=== PATIENT | male | born 1990 | race African-American/Black ===

== ENCOUNTER 2016-05-13 11:17 | Emergency (ER) | payer OTHER ==
[~2016-05-13] VITALS: Ht 175.3 cm; Wt 102.1 kg
[~2016-05-13 11:17] MED LIST: ACETAMINOP-CODEI5 ML PO; ACETAMINOPHEN-1 EAC1 ORAL; ALBUTEROL SULF8.5 GM INH; AMOXICILLIN500 MG ORAL; AZITHROMYCIN250 MG ORAL; CYCLOBENZAPRINE10 MG ORAL; IBUPROFEN600 M1 PO; IBUPROFEN600 MG ORAL; MUCINEX D ER T1 EACH PO; NKM; NORCO 5-325 TA1 EAC1 ORAL; NORCO 5-325 TA1 EACH ORAL; PERCOCET 5-3251 EACH ORAL; PREDNISONE10 MG ORAL; PROMETHAZINE-C118 M1 ORAL; TAMIFLU75 MG ORAL; TYLENOL325 MG ORAL; ZOFRAN4 MG ORAL
[2016-05-13 11:50] VITALS: BP 141/95
[2016-05-13] MEDS ORDERED: Tubing IV Cassette IV ONE (12:40)
[2016-05-13] MEDS: LR 1000ml 1,000 ML IV SCH ×2 (13:00→13:02)
[2016-05-13 14:23] VITALS: BP 135/84
--- NOTE | 2016-05-14 15:15 | Emergency Room Report ---
History of Present Illness General Chief Complaint: General Complaint Source: Patient Present Illness HPI 25 YOM c/o 2 days severe dehydration after taking water pills to help him lose weight - urinating "a lot," feeling weak when changing position/standing up. States drinking a lot of fluid but "its not enough." Denies chest pain, SOB, palpitations, abd pain, urinary complaints. Denies other medical problems. Allergies: Coded Allergies: No Known Allergies (Unverified , 09/30/13) Patient History Past Medical History: none Past Surgical History: none Pertinent Family History: none Social History: Denies: alcohol use, drug use, smoking Immunizations: UTD Reviewed Nursing Documentation: PMH: Agreed, PSxH: Agreed Nursing Documentation-PMH Hx Hypertension: Yes Hx Asthma: Yes Hx COPD: No - bronchitis Hx Diabetes: Yes - BOARDLINE Review of Systems All Other Systems: negative except mentioned in HPI Physical Exam Vital Signs Date Time Temp Pulse Resp B/P Pulse Ox O2 Delivery O2 Flow Rate FiO2 05/13/16 11:36 98.2 52 20 141/95 100 Room Air Sp02 EP Interpretation: reviewed, normal General Appearance: normal inspection, well appearing, no apparent distress, alert, GCS 15, non-toxic Head: normocephalic, atraumatic Eyes: bilateral eye EOMI, bilateral eye PERRL ENT: normal ENT inspection, hearing grossly normal, no angioedema, normal voice , dry mucus membranes Neck: normal inspection, full range of motion, supple, no bony tend Respiratory: normal inspection, lungs clear, normal breath sounds, no respiratory distress, no retraction, no wheezing Cardiovascular #1: regular rate, rhythm, no edema Gastrointestinal: normal inspection, normal bowel sounds, non tender, soft, no guarding, no hernia Genitourinary: no CVA tenderness Musculoskeletal: normal inspection, back normal, normal range of motion, Cody' s Sign negative Neurologic: normal inspection, alert, oriented x3, responsive, conventions reservationist III-XII nml as tested, motor strength/tone normal, speech normal Psychiatric: normal inspection Skin: normal inspection, palpation normal Lymphatic: normal inspection Medical Decision Making Diagnostic Impression: Primary Impression: Dehydration ER Course 25 YO M with HPI and PE c/w dehydration. VSS. Afebrile. ECG NSR. No ischemia Patient given IVF hydration Feels much better DC home Last Vital Signs Date Time Temp Pulse Resp B/P Pulse Ox O2 Delivery O2 Flow Rate FiO2 05/13/16 14:23 98.2 56 20 135/84 100 Room Air Status: improved Disposition: HOME, SELF-CARE Condition: Improved Patient Instructions: Dehydration, Adult, [id number] YUSUF BELCHER M.D. May 14, 2016 15:15
--- NOTE | 2016-05-17 18:19 | Cardiology Report ---
APPROVED REPORT EKG Measurement Heart [id number] Sinus bradycardia with sinus arrhythmia Otherwise normal ECG
== END 2016-05-13 14:24 | disposition home or self-care (01) ==
LOC: EMR 12:18
DX: E86.0 Dehydration (principal); J45.909 Unspecified asthma, uncomplicated
CPT/HCPCS: 82962; 93005; 96360; 99284; J7120

== ENCOUNTER 2016-05-25 01:33 | Emergency (ER) | payer OTHER ==
[~2016-05-25] VITALS: Ht 175.3 cm; Wt 99.8 kg
[2016-05-25] MEDS ORDERED: Ketorolac 30mg Inj IM ONE (02:00)
[2016-05-25] MEDS ORDERED: Cyclobenzaprine 10mg Tab ORAL ONE (02:00)
[2016-05-25 02:20] VITALS: BP 124/77
[2016-05-25] MEDS ORDERED: CYCLOBENZAPRINE10 MG ORAL (02:27)
[2016-05-25] MEDS ORDERED: IBUPROFEN600 MG ORAL (02:27)
--- NOTE | 2016-05-25 05:31 | Emergency Room Report ---
History of Present Illness General Chief Complaint: Pain Source: Patient Present Illness HPI 25-year-old male presents ED complaining of right shoulder and neck pain x2 days. States 2 days ago he had a mechanical trip and fall hitting a wall. States that he's been having right shoulder and right-sided neck pain since. Pain is sharp. 10 out of 10. Nonradiating. Worse with movement. Denies any other injuries. No other aggravating relieving factors. Denies any other associated symptoms Allergies: Coded Allergies: No Known Allergies (Unverified , 09/30/13) Patient History Past Medical History: DM, asthma Past Surgical History: none Pertinent Family History: none Social History: Denies: alcohol use, drug use, smoking Immunizations: UTD Reviewed Nursing Documentation: PMH: Agreed, PSxH: Agreed Nursing Documentation-PMH Hx Hypertension: Yes Hx Asthma: Yes Hx COPD: No - bronchitis Hx Diabetes: Yes - BOARDLINE Review of Systems All Other Systems: negative except mentioned in HPI Physical Exam Vital Signs Date Time Temp Pulse Resp B/P Pulse Ox O2 Delivery O2 Flow Rate FiO2 05/25/16 01:43 97.3 54 18 124/77 96 Room Air Sp02 EP Interpretation: reviewed, normal General Appearance: no apparent distress, alert, GCS 15, non-toxic Head: normocephalic Eyes: bilateral eye PERRL, bilateral eye normal inspection ENT: hearing grossly normal, normal pharynx, no angioedema, normal voice Neck: full range of motion, supple, no bony tend, supple/symm/no masses, tender lateral Respiratory: normal inspection Cardiovascular #1: normal inspection Gastrointestinal: normal inspection Rectal: deferred Genitourinary: no CVA tenderness Musculoskeletal: normal range of motion, tender - R shoulder Neurologic: alert, oriented x3, responsive, motor strength/tone normal, sensory intact, speech normal Psychiatric: normal inspection Skin: normal inspection Lymphatic: normal inspection Medical Decision Making Diagnostic Impression: Primary Impression: Neck strain Qualified Codes: S16.1XXA - Strain of muscle, fascia and tendon at neck level , initial encounter ER Course Hospital Course 25 yo M presents ED with right shoulder and neck pain status post fall Differential diagnoses include: Neck strain, Shoulder contusion, shoulder dislocation Clinical course Patient placed on stretcher. After initial history, physical exam reveals a young male in no acute distress. There is no midline cervical tenderness. There is tenderness to the right side of the neck radiating towards the right shoulder. Full range of motion to right shoulder. Unlikely any evidence of fracture or dislocation. Pain is muscular. I ordered toradol and flexeril for pain. Upon reassessment patient states pain has improved. Diagnosis - neck strain Stable and discharged to home with prescription for Motrin, Flexeril. Followup with PMD. Return to ED if symptoms recur or worsen Last Vital Signs Date Time Temp Pulse Resp B/P Pulse Ox O2 Delivery O2 Flow Rate FiO2 05/25/16 02:20 97.3 18 124/77 96 Room Air 05/25/16 01:43 54 Status: improved Disposition: HOME, SELF-CARE Condition: Stable Scripts Cyclobenzaprine Hcl* (FLEXERIL*) 10 Mg Tablet 10 MG ORAL TID Y for Muscle Spasm, #20 TAB Prov: HEIDI SOLIS M.D. 05/25/16 Ibuprofen* (MOTRIN*) 600 Mg Tablet 600 MG ORAL Q8H Y for For Pain, #30 TAB 0 Refills Prov: HEIDI SOLIS M.D. 05/25/16 Patient Instructions: Cervical Strain and Sprain With [facility] HEIDI SOLIS M.D. May 25, 2016 05:31
== END 2016-05-25 02:25 | disposition home or self-care (01) ==
LOC: EMR 02:02
DX: S16.1XXA Strain of muscle, fascia and tendon at neck level, initial encounter (principal); I10 Essential (primary) hypertension; J45.909 Unspecified asthma, uncomplicated; E11.9 Type 2 diabetes mellitus without complications; W18.30XA Fall on same level, unspecified, initial encounter; Y92.9 Unspecified place or not applicable; Y99.8 Other external cause status
CPT/HCPCS: 96372; 99284; J1885

== ENCOUNTER 2016-09-09 01:09 | Emergency (ER) | payer OTHER ==
[~2016-09-09] VITALS: Ht 175.3 cm; Wt 95.3 kg
[2016-09-09] MEDS ORDERED: Azithromycin 250mg tab ORAL ONE (02:00)
[2016-09-09] MEDS ORDERED: Lidocaine 1% MPF 10mg/ml 5ml ONE (02:02)
[2016-09-09 02:10] LABS: APPEARANCE,URINE CLEAR; KETONES,URINE NEGATIVE (NEGATIVE); LEUKOCYTE ESTERASE ,URINE 2+ (NEGATIVE); NITRITE,URINE NEGATIVE (NEGATIVE); PH,URINE 6 (4.5-8.0); PROTEIN,URINE NEGATIVE (NEGATIVE); UROBILINOGEN,URINE NORMAL MG/DL (0.0-1.0)
[2016-09-09 02:32] LABS: RBC,URINE 0 /HPF (0 - 0)
[2016-09-09 02:54] VITALS: BP 120/83
--- NOTE | 2016-09-09 14:32 | Emergency Room Report ---
History of Present Illness General Chief Complaint: Abdominal Pain Source: Patient Present Illness HPI 25-year-old M presents ED for evaluation. Patient states last 2 days he's had painful urination. Denies any discharge. States he's had a recent unprotected sex. Denies any fevers or chills and denies flank pain. Pain is a 9/10, burning, worse with urination. Denies any testicular pain. No other aggravating or relieving factors. Denies any other associated symptoms Allergies: Coded Allergies: No Known Allergies (Unverified , 09/30/13) Patient History Past Medical History: HTN, asthma Past Surgical History: none Pertinent Family History: none Social History: Denies: alcohol use, drug use, smoking Immunizations: UTD Reviewed Nursing Documentation: PMH: Agreed, PSxH: Agreed Nursing Documentation-PMH Hx Hypertension: Yes Hx Asthma: Yes Hx COPD: No - bronchitis Hx Diabetes: Yes - BOARDLINE Review of Systems All Other Systems: negative except mentioned in HPI Physical Exam Vital Signs Date Time Temp Pulse Resp B/P Pulse Ox O2 Delivery O2 Flow Rate FiO2 09/09/16 01:32 98.4 65 18 115/83 96 Room Air Sp02 EP Interpretation: reviewed, normal General Appearance: no apparent distress, alert, GCS 15, non-toxic Head: normocephalic Eyes: bilateral eye PERRL, bilateral eye normal inspection ENT: normal ENT inspection Neck: normal inspection Respiratory: normal inspection Cardiovascular #1: normal inspection Gastrointestinal: normal bowel sounds, non tender, soft, non-distended, no guarding, no rebound Rectal: deferred Genitourinary: no CVA tenderness Musculoskeletal: normal inspection Neurologic: alert, oriented x3, responsive, motor strength/tone normal, sensory intact, speech normal Psychiatric: normal inspection Skin: normal inspection Lymphatic: normal inspection Medical Decision Making Diagnostic Impression: Primary Impression: STD (male) ER Course Hospital Course 25-year-old male presents to ED complaining of dysuria. Recent unprotected sex Differential diagnoses include: UTI, cystitis, pyelonephritis Clinical course Patient placed on stretcher. After initial history and physical I ordered UA UA shows some white blood cells but no evidence of bacteria suggestive of UTI Findings likely related to STD. Given Rocephin/azithromycin in ED. Recommend testing at STD clinic Diagnosis - STD Stable and discharged home. Instructed to followup with PMD. Return to ED if symptoms recur or worsen Labs Test 09/09/16 01:53 Urine Color Pale yellow Urine Appearance Clear Urine pH 6 (4.5-8.0) Urine Specific [place] 1.015 (1.005-1.035) Urine Protein Negative (NEGATIVE) Urine Glucose (UA) Negative (NEGATIVE) Urine Ketones Negative (NEGATIVE) Urine Occult Blood Negative (NEGATIVE) Urine Nitrite Negative (NEGATIVE) Urine Bilirubin Negative (NEGATIVE) Urine Urobilinogen Normal MG/DL (0.0-1.0) Urine Leukocyte Esterase 2+ (NEGATIVE) Urine RBC 0 /HPF (0 - 0) Urine WBC 10-15 /HPF (0 - 0) Urine Squamous Epithelial Cells None /LPF (NONE/OCC) Urine Bacteria None /HPF (NONE) Last Vital Signs Date Time Temp Pulse Resp B/P Pulse Ox O2 Delivery O2 Flow Rate FiO2 09/09/16 02:54 98.4 18 120/83 96 Room Air 09/09/16 01:32 65 Status: improved Disposition: HOME, SELF-CARE Condition: Stable Patient Instructions: Dysuria HEIDI SOLIS M.D. Sep 09, 2016 14:32
== END 2016-09-09 02:57 | disposition home or self-care (01) ==
LOC: EMR 02:08
DX: A64 Unspecified sexually transmitted disease (principal); I10 Essential (primary) hypertension; J45.909 Unspecified asthma, uncomplicated
CPT/HCPCS: 81003; 87086; 96372; 99283; J0696; Q0144

== ENCOUNTER 2016-09-11 19:29 | Emergency (ER) | payer OTHER ==
[~2016-09-11] VITALS: Ht 175.3 cm; Wt 95.3 kg
[2016-09-11 19:55] VITALS: BP 131/84
[2016-09-11 20:12] LABS: APPEARANCE,URINE CLEAR; KETONES,URINE NEGATIVE (NEGATIVE); LEUKOCYTE ESTERASE ,URINE 2+ (NEGATIVE); NITRITE,URINE NEGATIVE (NEGATIVE); PH,URINE 6.5 (4.5-8.0); PROTEIN,URINE NEGATIVE (NEGATIVE); UROBILINOGEN,URINE NORMAL MG/DL (0.0-1.0)
[2016-09-11 20:29] LABS: BACTERIA,URINE OCCASIONAL /HPF; WBC,URINE 20-30 /HPF (0 - 0)
[2016-09-11] MEDS ORDERED: ARTIFICIAL TEAR15 ML BOTH EYES (20:40)
[2016-09-11] MEDS ORDERED: CEPHALEXIN500 MG ORAL (20:40)
[2016-09-11] MEDS ORDERED: IBUPROFEN600 MG ORAL (20:40)
[2016-09-11 20:50] VITALS: BP 128/82
--- NOTE | 2016-09-11 21:52 | Emergency Room Report ---
History of Present Illness General Chief Complaint: Eye Problems Source: Patient Present Illness HPI The patient is a 25 old male presenting for bilateral eye redness, eye pain, and dysuria. He states at that redness and pain began 2 days prior and has been worsening. He denies any known sick contacts. Pain is a 9/10 burning sensation to both eyes. Worse with blinking. He denies any discharge from the eyes. He does admit to mild blurred vision. He denies any dizziness. Dysuria described as 5/10 burning with urination. He was seen in this emergency department recently and given Rocephin and azithromycin. He states he has not been sexually active since then. He denies fever, chills, nausea, vomiting Allergies: Coded Allergies: No Known Allergies (Unverified , 09/30/13) Patient History Past Medical History: see triage record Pertinent Family History: none Reviewed Nursing Documentation: PMH: Agreed, PSxH: Agreed Nursing Documentation-PMH Past Medical History: No History, Except For Hx Hypertension: Yes Hx Asthma: Yes Hx COPD: No - bronchitis Hx Diabetes: Yes - BOARDLINE Review of Systems All Other Systems: negative except mentioned in HPI Physical Exam Vital Signs Date Time Temp Pulse Resp B/P Pulse Ox O2 Delivery O2 Flow Rate FiO2 09/11/16 19:43 98.2 60 16 131/84 100 Room Air Sp02 EP Interpretation: reviewed, normal General Appearance: no apparent distress, alert, GCS 15, non-toxic Head: normocephalic, atraumatic Eyes: bilateral eye EOMI, bilateral eye PERRL, bilateral eye Scleral Injection ENT: hearing grossly normal, normal pharynx, no angioedema, normal voice Neck: full range of motion, supple/symm/no masses Respiratory: chest non-tender, lungs clear, normal breath sounds, speaking full sentences Gastrointestinal: normal bowel sounds, non tender, soft, non-distended, no guarding, no rebound Genitourinary: normal inspection, no CVA tenderness, penis normal Neurologic: alert, oriented x3, responsive, motor strength/tone normal, sensory intact, speech normal Psychiatric: judgement/insight normal, memory normal, mood/affect normal, no suicidal/homicidal ideation Skin: normal color, no rash, warm/dry, well hydrated Medical Decision Making PA Attestation Dr. Morales is my supervising physician. Patient management was discussed with my supervising physician Diagnostic Impression: Primary Impression: Urinary tract infection Qualified Codes: N39.0 - Urinary tract infection, site not specified Additional Impression: Viral conjunctivitis ER Course The patient is a 25-year-old male presenting for eye redness, eye pain, and dysuria Differential diagnoses considered but not limited to allergic conjunctivitis, bacterial conjunctivitis, viral conjunctivitis, blepharitiis, hordeolum Differential diagnosis considered but not limited to: UTI, urethritis, STD, among others Physical exam: Vitals within normal limits. Eyes: Bilateral conjunctival injection with increased tearing. Abdomen is soft and nontender Otherwise exam unremarkable Urinalysis shows white blood cells with bacteria The patient will be discharged home with a prescription for artificial tears and antibiotics for UTI. He was informed that the eye infection is very contagious. ER precautions given Laboratory Tests Test 09/11/16 19:50 Urine Color Pale yellow Urine Appearance Clear Urine pH 6.5 (4.5-8.0) Urine Specific [place] 1.010 (1.005-1.035) Urine Protein Negative (NEGATIVE) Urine Glucose (UA) Negative (NEGATIVE) Urine Ketones Negative (NEGATIVE) Urine Occult Blood Negative (NEGATIVE) Urine Nitrite Negative (NEGATIVE) Urine Bilirubin Negative (NEGATIVE) Urine Urobilinogen Normal MG/DL (0.0-1.0) Urine Leukocyte Esterase 2+ (NEGATIVE) H Urine RBC 2-4 /HPF (0 - 0) H Urine WBC 20-30 /HPF (0 - 0) H Urine Squamous Epithelial Cells None /LPF (NONE/OCC) Urine Bacteria Occasional /HPF (NONE) Lab Results Impression WBCs with bacteria Last Vital Signs Date Time Temp Pulse Resp B/P Pulse Ox O2 Delivery O2 Flow Rate FiO2 09/11/16 20:50 98.2 62 14 128/82 100 Room Air Status: improved Disposition: HOME, SELF-CARE Condition: Improved Scripts Cephalexin* (KEFLEX*) 500 Mg Capsule 500 MG ORAL EVERY 12 HOURS, #14 CAP 0 Refills Prov: TERZIAN,GILBERT P.A. 09/11/16 Dextran 70/Hypromellose (ARTIFICIAL TEARS EYE DROPS*) 15 Ml Drops 1 DROP BOTH EYES PRN, #15 ML 0 Refills Prov: TERZIAN,GILBERT P.A. 09/11/16 Ibuprofen* (MOTRIN*) 600 Mg Tablet 600 MG ORAL Q8H Y for For Pain, #30 TAB 0 Refills Prov: GILBERT CRAIG 09/11/16 Referrals: [facility],REFERRING (PCP) Patient Instructions: Urinary Tract Infection, Viral Conjunctivitis Additional Instructions: I discussed my findings with the patient. All questions and concerns have been answered. Treatment and medication compliance have been addressed. I advised the patient that they need to follow up with PMD in 3-5 days. Return to ED if symptoms worsen, new symptoms arise, or if needed for any reason. Patient verbalized understanding of discharge instructions. GILBERT CRAIG Sep 11, 2016 21:52
== END 2016-09-11 20:50 | disposition home or self-care (01) ==
LOC: EMR 20:40
DX: N39.0 Urinary tract infection, site not specified (principal); B30.9 Viral conjunctivitis, unspecified; I10 Essential (primary) hypertension; J45.909 Unspecified asthma, uncomplicated
CPT/HCPCS: 81001; 87086; 99284

== ENCOUNTER 2016-09-14 22:47 | Emergency (ER) | payer OTHER ==
[~2016-09-14] VITALS: Ht 175.3 cm; Wt 95.3 kg
[~2016-09-14 22:47] MED LIST changes: +ARTIFICIAL TEAR15 ML BOTH EYES; +CEPHALEXIN500 MG ORAL
[2016-09-14 23:40] VITALS: BP 112/72
[2016-09-15] MEDS ORDERED: GENTAK5 ML BOTH EYES (00:11)
[2016-09-15 00:30] VITALS: BP 115/78
--- NOTE | 2016-09-15 00:37 | Emergency Room Report ---
History of Present Illness General Chief Complaint: Eye Problems Source: Patient Present Illness HPI Patient is a 26-year-old male who presented after increased bilateral eye redness. The patient reported increased eye discharge as well as crusting. He reported increased pain to his eyes. He had been having symptoms for several days. Patient had been using artificial tears without any relief. Patient denied any fever. He had prior history of asthma. He denies any recent trauma. Allergies: Coded Allergies: No Known Allergies (Unverified , 09/30/13) Patient History Past Medical History: see triage record Reviewed Nursing Documentation: PMH: Agreed, PSxH: Agreed Nursing Documentation-PMH Hx Hypertension: Yes Hx Asthma: Yes Hx COPD: No - bronchitis Hx Diabetes: Yes - BOARDLINE Review of Systems All Other Systems: negative except mentioned in HPI Physical Exam Vital Signs Date Time Temp Pulse Resp B/P Pulse Ox O2 Delivery O2 Flow Rate FiO2 09/14/16 23:22 97.9 56 18 111/68 96 Room Air General Appearance: well appearing, no apparent distress, alert, GCS 15 Head: normocephalic, atraumatic Eyes: bilateral eye EOMI, bilateral eye PERRL, bilateral eye normal inspection ENT: hearing grossly normal, normal voice Neck: full range of motion, supple Respiratory: no respiratory distress, speaking full sentences Cardiovascular #1: normal inspection Musculoskeletal: no calf tenderness Neurologic: normal gait Psychiatric: mood/affect normal Skin: no rash Medical Decision Making Diagnostic Impression: Primary Impression: Conjunctivitis ER Course Patient presented for bilateral eye redness. Differential diagnosis included but wasn't limited to glaucoma, iritis, corneal abrasion, bacterial conjunctivitis, viral conjunctivitis. Patient's benign exam and does not appear to require any further imaging or laboratory testing at this time. The patient presented to bacterial conjunctivitis. Patient given prescription for topical antibiotics. The patient is advised to followup with ophthalmology in the next 2-3 days. Last Vital Signs Date Time Temp Pulse Resp B/P Pulse Ox O2 Delivery O2 Flow Rate FiO2 09/14/16 23:40 98.7 82 17 112/72 99 Room Air Status: improved Disposition: HOME, SELF-CARE Condition: Stable Scripts Gentamicin Sulfate* (GENTAK*) 5 Ml Drops 1 DROP BOTH EYES Q4H, #5 DROP 0 Refills Prov: Blade Moody 09/15/16 Patient Instructions: Bacterial Conjunctivitis, [id number] Blade Moody Sep 15, 2016 00:37
== END 2016-09-15 00:30 | disposition home or self-care (01) ==
LOC: EMR 09-15 00:06
DX: H10.9 Unspecified conjunctivitis (principal); J45.909 Unspecified asthma, uncomplicated; I10 Essential (primary) hypertension
CPT/HCPCS: 99283

== ENCOUNTER 2017-07-28 23:11 | Emergency (ER) | payer OTHER ==
[~2017-07-28] VITALS: Ht 175.3 cm; Wt 99.8 kg
[~2017-07-28 23:11] MED LIST changes: +GENTAK5 ML BOTH EYES
[2017-07-28] MEDS ORDERED: BACTRIM DS TAB1 EAC1 ORAL (23:36)
[2017-07-28] MEDS ORDERED: DICYCLOMINE HCL10 MG PO (23:36)
[2017-07-28] MEDS ORDERED: Dicyclomine HCl 10mg/5ml oral soln ORAL ONE (23:45)
[2017-07-28] MEDS ORDERED: Simethicone 80mg tab ORAL ONE (23:45)
[2017-07-29 00:27] VITALS: BP 119/71
--- NOTE | 2017-07-29 02:32 | Emergency Room Report ---
History of Present Illness General Chief Complaint: Abdominal Pain Present Illness HPI Patient is a 26-year-old male who presented after increased abdominal pain. Patient gradual onset of symptoms. Patient reports having increased bloating associated with diarrhea. Patient reports having diarrhea for the past few days as well as increased abdominal bloating. He denies any previous surgery the patient ports having no current complaints of his asthma. Allergies: Coded Allergies: No Known Allergies (Unverified , 09/30/13) Patient History Past Medical History: see triage record Reviewed Nursing Documentation: PMH: Agreed; PSxH: Agreed Nursing Documentation-PMH Hx Hypertension: Yes Hx Asthma: Yes Hx COPD: No - bronchitis Hx Diabetes: Yes - BOARDLINE Review of Systems All Other Systems: negative except mentioned in HPI Physical Exam Vital Signs Date Time Temp Pulse Resp B/P (MAP) Pulse Ox O2 Delivery O2 Flow Rate FiO2 07/28/17 23:14 98.8 74 16 119/71 96 Room Air 98.8 General Appearance: well appearing, no apparent distress, alert, GCS 15, obese Head: normocephalic, atraumatic ENT: hearing grossly normal, normal voice Neck: full range of motion, supple Respiratory: no respiratory distress, speaking full sentences Gastrointestinal: normal inspection, normal bowel sounds, non tender, soft Musculoskeletal: normal inspection, back normal, no calf tenderness Neurologic: normal inspection, alert, oriented x3, responsive, tram operator III-XII nml as tested, normal gait Psychiatric: mood/affect normal Skin: normal inspection, other - papular rash to lower abdomen centered around hair follicle Medical Decision Making Diagnostic Impression: Primary Impression: Folliculitis Additional Impression: Viral gastroenteritis ER Course Patient presented for abdominal pain. Differential diagnoses included ischemic bowel, appendicitis, perforated viscus, abdominal aortic aneurysm, inferior myocardial infarction, viral gastroenteritis Patient has a benign exam and does not appear to require any further imaging or laboratory testing at this time. The patient appears to have a viral gastroenteritis. The patient additionally appears to have some folliculitis and was given prescription for Bactrim. The patient is advised to follow up with primary care doctor in 1-2 days. Patient is advised to return if any worsening condition or if any changes in status that are concerning. This report is dictated with [employer] robotic toy inventor software which may occasionally lead to discrepancies related to use of this software. Last Vital Signs Date Time Temp Pulse Resp B/P (MAP) Pulse Ox O2 Delivery O2 Flow Rate FiO2 07/29/17 00:27 98.8 16 119/71 96 Room Air 98.8 07/28/17 23:14 74 Status: improved Disposition: HOME, SELF-CARE Condition: Stable Scripts Dicyclomine Hcl* (DICYCLOMINE HCL*) 10 Mg Capsule 10 MG PO QID, #20 CAP Prov: Blade Moody MD 07/28/17 Trimethoprim/Sulfamethoxazole 160/800* (BACTRIM DS TABLET*) 1 Each Tablet 1 TAB ORAL TWICE A DAY, #14 TAB Prov: Blade Moody MD 07/28/17 Referrals: NON PHYSICIAN (PCP) Patient Instructions: Abdominal Pain, Adult, Folliculitis Blade Moody MD Jul 29, 2017 02:32
== END 2017-07-29 00:28 | disposition home or self-care (01) ==
LOC: EMR 23:59
DX: L73.9 Follicular disorder, unspecified (principal); A08.4 Viral intestinal infection, unspecified; I10 Essential (primary) hypertension; J44.9 Chronic obstructive pulmonary disease, unspecified
CPT/HCPCS: 99284

== ENCOUNTER 2017-08-11 12:54 | Emergency (ER) | payer OTHER ==
[~2017-08-11] VITALS: Ht 175.3 cm; Wt 99.8 kg
[~2017-08-11 12:54] MED LIST changes: +BACTRIM DS TAB1 EAC1 ORAL; +DICYCLOMINE HCL10 MG PO
[2017-08-11] MEDS ORDERED: Ketorolac 30mg Inj IV ONE (13:45)
[2017-08-11 13:49] LABS: APPEARANCE,URINE CLEAR; BILIRUBIN, URINE NEGATIVE (NEGATIVE); COLOR,URINE PALE YELLOW; GLUCOSE, URINE (UA) NEGATIVE (NEGATIVE); KETONES,URINE NEGATIVE (NEGATIVE); LEUKOCYTE ESTERASE ,URINE NEGATIVE (NEGATIVE); NITRITE,URINE NEGATIVE (NEGATIVE); PH,URINE 6 (4.5-8.0); PROTEIN,URINE NEGATIVE (NEGATIVE); UROBILINOGEN,URINE NORMAL MG/DL (0.0-1.0)
[2017-08-11 13:53] LABS: BASOPHILS % (AUTO) 0.8 % (0.0-2.0); EOSINOPHILS % (AUTO) 1.5 % (0.0-3.0); HEMATOCRIT 52.2 % (42.0-52.0); HEMOGLOBIN 16.7 G/DL (14.2-18.0); LYMPHOCYTES % (AUTO) 17.3 % (20.0-45.0); MEAN CORPUSCULAR VOLUME 88 FL (80-99); MONOCYTES % (AUTO) 8.3 % (1.0-10.0); NEUTROPHILS % (AUTO) 72.1 % (45.0-75.0); PLATELET COUNT 127 K/UL (150-450); RED BLOOD COUNT 5.94 M/UL (4.70-6.10); RED CELL DISTRIBUTION WIDTH 12.7 % (11.6-14.8); WHITE BLOOD COUNT 6.5 K/UL (4.8-10.8)
[2017-08-11 14:03] VITALS: BP 128/67
[2017-08-11 14:07] LABS: ALANINE AMINOTRANSFERASE 58 U/L (12-78); ALBUMIN 3.9 G/DL (3.4-5.0); ALKALINE PHOSPHATASE 62 U/L (46-116); ANION GAP 8 mmol/L (5-15); ASPARTATE AMINO TRANSFERASE 50 U/L (15-37); BILIRUBIN,TOTAL 0.6 MG/DL (0.2-1.0); BLOOD UREA NITROGEN 17 mg/dL (7-18); CALCIUM 9.3 MG/DL (8.5-10.1); CARBON DIOXIDE 28 MMOL/L (21-32); CHLORIDE 103 MMOL/L (98-107); CREATININE 1.1 MG/DL (0.55-1.30); POTASSIUM 3.8 MMOL/L (3.5-5.1); SODIUM 139 MMOL/L (136-145)
--- NOTE | 2017-08-11 14:27 | Emergency Room Report ---
History of Present Illness General Chief Complaint: Pain Source: Patient Present Illness HPI 26 YO male Presents to the emergency department complaining of 10 out of 10 in severity right-sided flank and abdominal pain since last night. Patient describes this pain as constant in nature and is exacerbated upon taking a deep breath or after eating. He reports nausea denies vomiting denies constipation, diarrhea, blood in the stools or dark tarry stools. Patient reports history of pancreatitis. He denies alcohol consumption. Patient denies fevers, chills, recent travel or ill contacts. Reports hx of HTn and asthma. Patient denies other significant past medical history. Denies cough. No relieving factors. Denies CP, Palpitations, LOC, AMS, dizziness, Changes in Vision, Sensation, paresthesias, or a sudden severe headache. Allergies: Coded Allergies: No Known Allergies (Unverified , 09/30/13) Patient History Past Medical History: see triage record Past Surgical History: none Pertinent Family History: none Reviewed Nursing Documentation: PMH: Agreed; PSxH: Agreed Nursing Documentation-PMH Hx Hypertension: Yes Hx Asthma: Yes Hx COPD: No - bronchitis Review of Systems All Other Systems: negative except mentioned in HPI Physical Exam Vital Signs Date Time Temp Pulse Resp B/P (MAP) Pulse Ox O2 Delivery O2 Flow Rate FiO2 08/11/17 13:00 98.6 83 17 122/68 97 Room Air 98.6 Sp02 EP Interpretation: reviewed, normal General Appearance: no apparent distress, alert, GCS 15, non-toxic, mild distress Head: normocephalic, atraumatic ENT: hearing grossly normal, normal voice Neck: full range of motion Respiratory: lungs clear, normal breath sounds, speaking full sentences Cardiovascular #1: regular rate, rhythm, no edema Gastrointestinal: normal bowel sounds, soft, non-distended, no guarding, tenderness - RUQ TTP Rectal: deferred Genitourinary: normal inspection, no CVA tenderness Musculoskeletal: back normal, gait/station normal, normal range of motion, non- tender Neurologic: alert, oriented x3, responsive, motor strength/tone normal, sensory intact, speech normal, grossly normal Psychiatric: judgement/insight normal Skin: normal color, no rash, warm/dry, well hydrated Medical Decision Making PA Attestation Dr. Morales is my supervising Physician whom patient management has been discussed with. Diagnostic Impression: Primary Impression: Right flank pain Additional Impression: Abdominal pain Qualified Codes: R10.84 - Generalized abdominal pain ER Course 26 YO male Presents to the emergency department complaining of 10 out of 10 in severity right-sided flank and abdominal pain since last night. Patient describes this pain as constant in nature and is exacerbated upon taking a deep breath or after eating. He reports nausea denies vomiting denies constipation, diarrhea, blood in the stools or dark tarry stools. Patient reports history of pancreatitis. He denies alcohol consumption. Patient denies fevers, chills, recent travel or ill contacts. Reports hx of HTN and asthma. Patient denies other significant past medical history. Denies cough. No relieving factors. Denies CP, Palpitations, LOC, AMS, dizziness, Changes in Vision, Sensation, paresthesias, or a sudden severe headache. Ddx considered but are not limited to Diverticulitis, acute appy, diarrhea,UC, PUD, GE, pancreatitis, gallstone, kidney stone, pyelonephritis, UTI, obstruction. Vital signs: are WNL, pt. is afebrile H&PE are most consistent with flank pain with TTP. ORDERS: -CBC, CMP, lipase: All Unremarkable - UA: 1+ occult blood and 2-4 RBc's otherwise unremarkable no evidence of infection. - CT abdomen and pelvis no contrast: no acute intra-abdominal process. - for summary of official radiology report- Please see report for specific details. ED INTERVENTIONS: -- 1000NS --Toradol IV - D/w pt. the results of imaging and lab work. d/w pt. that he is stable for close outpatient follow up with PCP. Gave ED return precautions for worsening or new symptoms. DISCHARGE: At this time pt. is stable for d/c to home. Will provide printed patient care instructions, and any necessary prescriptions. Care plan and follow up instructions have been discussed with the patient prior to discharge. Labs Test 08/11/17 13:30 White Blood Count 6.5 K/UL (4.8-10.8) Red Blood Count 5.94 M/UL (4.70-6.10) Hemoglobin 16.7 G/DL (14.2-18.0) Hematocrit 52.2 % (42.0-52.0) Mean Corpuscular Volume 88 FL (80-99) Mean Corpuscular Hemoglobin 28.1 PG (27.0-31.0) Mean Corpuscular Hemoglobin Concent 31.9 G/DL (32.0-36.0) Red Cell Distribution Width 12.7 % (11.6-14.8) Platelet Count 127 K/UL (150-450) Mean Platelet Volume 10.3 FL (6.5-10.1) Neutrophils (%) (Auto) 72.1 % (45.0-75.0) Lymphocytes (%) (Auto) 17.3 % (20.0-45.0) Monocytes (%) (Auto) 8.3 % (1.0-10.0) Eosinophils (%) (Auto) 1.5 % (0.0-3.0) Basophils (%) (Auto) 0.8 % (0.0-2.0) Urine Color Pale yellow Urine Appearance Clear Urine pH 6 (4.5-8.0) Urine Specific [place] 1.010 (1.005-1.035) Urine Protein Negative (NEGATIVE) Urine Glucose (UA) Negative (NEGATIVE) Urine Ketones Negative (NEGATIVE) Urine Occult Blood 1+ (NEGATIVE) Urine Nitrite Negative (NEGATIVE) Urine Bilirubin Negative (NEGATIVE) Urine Urobilinogen Normal MG/DL (0.0-1.0) Urine Leukocyte Esterase Negative (NEGATIVE) Urine RBC 2-4 /HPF (0 - 0) Urine WBC 0-2 /HPF (0 - 0) Urine Squamous Epithelial Cells Occasional /LPF Urine Bacteria Few /HPF (NONE) Sodium Level 139 MMOL/L (136-145) Potassium Level 3.8 MMOL/L (3.5-5.1) Chloride Level 103 MMOL/L (98-107) Carbon Dioxide Level 28 MMOL/L (21-32) Anion Gap 8 mmol/L (5-15) Blood Urea Nitrogen 17 mg/dL (7-18) Creatinine 1.1 MG/DL (0.55-1.30) Estimat Glomerular Filtration Rate > 60 mL/min (>60) Glucose Level 118 MG/DL (74-106) Calcium Level 9.3 MG/DL (8.5-10.1) Total Bilirubin 0.6 MG/DL (0.2-1.0) Aspartate Amino Transf (AST/SGOT) 50 U/L (15-37) Alanine Aminotransferase (ALT/SGPT) 58 U/L (12-78) Alkaline Phosphatase 62 U/L (46-116) Total Protein 7.8 G/DL (6.4-8.2) Albumin 3.9 G/DL (3.4-5.0) Globulin 3.9 g/dL Albumin/Globulin Ratio 1.0 (1.0-2.7) Lipase 268 U/L (73-393) CT/MRI/US Diagnostic Results CT/MRI/US Diagnostic Results : Imaging Test Ordered: CT Abdomen and Pelvis No Contrast Impression No acute intra-abdominal process. - summary of official radiology report- Please see report for specific details Last Vital Signs Date Time Temp Pulse Resp B/P (MAP) Pulse Ox O2 Delivery O2 Flow Rate FiO2 08/11/17 14:03 97.5 69 25 128/67 100 Room Air 97.5 Disposition: HOME, SELF-CARE Condition: Stable Scripts Lidocaine (Lidoderm) 1 Each Adh..patch 1 PATCH TOPIC DAILY, #30 PATCH 0 Refills Patch(es) may remain in place for up to 12 hours in any 24-hour period. Prov: Rimma Beck 08/11/17 Acetaminophen* (TYLENOL EXTRA STRENGTH*) 500 Mg Tablet 500 MG ORAL Q6H for pain, #20 TAB 0 Refills Prov: Rimma Beck 08/11/17 Departure Forms: Return to Work Return to Work Date: Aug 14, 2017 Work Restrictions: No Heavy Lifting Other Restrictions: light duty x 1 week, no heavy lifting. Return to Full Activity: Aug 21, 2017 Patient Instructions: Flank Pain, [id number], Muscle Strain, [id number], Pleurisy, [id number] Additional Instructions: Take medications as directed. Follow up with a Primary Care Provider in 3-5 days, even if your symptoms have resolved. --Please review list of primary care clinics, if you do not already have a primary care provider Return sooner to ED if new symptoms occur, or current symptoms become worse. - Please note that this Emergency Department Report was dictated using [employer] education professor technology software, occasionally this can lead to erroneous entry secondary to interpretation by the dictation equipment. Rimma Beck Aug 11, 2017 14:27
--- NOTE | 2017-08-11 14:31 | Diagnostic Imaging Report ---
Indication: Right abdominal pain, right-sided back pain, started last night, unable to sleep due to pain Technique: Spiral acquisitions obtained through the abdomen and pelvis. No oral contrast utilized, per emergency room physician request No IV contrast utilized, per emergency room physician request.. Multiplanar reconstructions were generated. Total dose length product 863.82 mGycm. CTDIvol(s) 16.14 mGy. Dose reduction achieved using automated exposure control Comparison: None Findings: Lack of enteric contrast limits assessment of the GI tract. The appendix is normal. There are a few small colonic diverticula. No evidence of diverticulitis. No small bowel distention. No free or loculated intraperitoneal air or fluid is evident. Distal esophagus, stomach, duodenum are unremarkable. Lack of IV contrast limits assessment of solid organs. The liver, gallbladder, bile ducts, pancreas, spleen, adrenals, are all grossly unremarkable. There is a 2 mm calculus within a posterior calyx in the interpolar region of the right kidney. No definite ureteral calculus. 8 x 5 mm calcification in the right side of the pelvis probably represents a phlebolith. No hydronephrosis or hydroureter. No left renal or ureteral calculi. No focal renal parenchymal abnormality. No retroperitoneal or mesenteric mass or adenopathy. No pelvic mass or adenopathy. The included lung bases are clear. The bones are unremarkable Impression: Limited assessment of the GI tract, due to lack of enteric contrast administration No definite acute abnormality Colonic diverticulosis. No evidence of diverticulitis Nonobstructive 2 mm right renal calyceal calculus 8 by 5 mm calcification in the right side of the pelvis, most likely represents a phlebolith. This could represent a ureteral calcification, but the lack of hydronephrosis, hydroureter, and perinephric changes makes this very unlikely The CT scanner at [facility] is accredited by the [employer] and the scans are performed using protocols designed to limit radiation exposure to as low as reasonably achievable to attain images of sufficient resolution adequate for diagnostic evaluation.
[2017-08-11] MEDS ORDERED: TYLENOL EXTRA500 MG ORAL (15:10)
[2017-08-11] MEDS ORDERED: LIDODERM700 M1 TOPIC (15:10)
[2017-08-11 15:20] VITALS: BP 115/55
[2017-08-11 15:25] VITALS: BP 115/55
== END 2017-08-11 15:30 | disposition home or self-care (01) ==
LOC: EMR 14:19
DX: R10.9 Unspecified abdominal pain (principal); K57.30 Diverticulosis of large intestine without perforation or abscess without bleeding; N20.0 Calculus of kidney; I10 Essential (primary) hypertension; J45.909 Unspecified asthma, uncomplicated
CPT/HCPCS: 36415; 74176; 80053; 81003; 83690; 85025; 96361; 96374; 99283; J1885; 96360

== ENCOUNTER 2017-09-15 13:21 | Emergency (ER) | payer OTHER ==
[~2017-09-15] VITALS: Ht 175.3 cm; Wt 99.8 kg
[~2017-09-15 13:21] MED LIST changes: +LIDODERM700 M1 TOPIC; +TYLENOL EXTRA500 MG ORAL
[2017-09-15] MEDS ORDERED: Lidocaine 1% MPF 10mg/ml 5ml INJ ONE (14:00)
[2017-09-15] MEDS ORDERED: Azithromycin 250mg tab ORAL ONE (14:00)
--- NOTE | 2017-09-15 14:06 | Emergency Room Report ---
History of Present Illness General Chief Complaint: Upper Extremity Injury Source: Patient Present Illness HPI 27-year-old male patient presents ER complaining of right wrist pain status post 1 week. Reports that he slipped and fell and reached out his right hand to brace himself and since that time felt like his hand has been hurt. Reports numbness in wrist. Reports he is right-hand dominant. Denies hitting his head or loss of consciousness. Also complaining of dysuria during this time. Reports recent sexual activity with multiple partners, states did not always use condoms. Denies penile discharge. Denies flank pain, fever, chest pain, shortness of breath, abdominal pain, other acute symptoms. Denies testicular swelling or pain. Denies penile rash or lesions. Allergies: Coded Allergies: No Known Allergies (Unverified , 09/30/13) Patient History Past Medical History: see triage record Reviewed Nursing Documentation: PMH: Agreed; PSxH: Agreed Nursing Documentation-PMH Past Medical History: No History, Except For Hx Hypertension: Yes Hx Asthma: Yes Hx COPD: No - bronchitis Review of Systems All Other Systems: negative except mentioned in HPI Physical Exam Vital Signs Date Time Temp Pulse Resp B/P (MAP) Pulse Ox O2 Delivery O2 Flow Rate FiO2 09/15/17 13:28 98.2 76 18 142/78 94 Room Air 98.2 Sp02 EP Interpretation: reviewed, normal General Appearance: well appearing, no apparent distress, alert, GCS 15, non- toxic Head: normocephalic, atraumatic Eyes: bilateral eye normal inspection, bilateral eye PERRL ENT: hearing grossly normal, normal pharynx, no angioedema, normal voice, uvula midline, moist mucus membranes Neck: full range of motion Respiratory: lungs clear, normal breath sounds, no rhonchi, no respiratory distress, no accessory muscle use, no wheezing, speaking full sentences Cardiovascular #1: regular rate, rhythm, no edema Cardiovascular #2: 2+ radial (R), 2+ radial (L) Gastrointestinal: non tender, soft, no mass, non-distended, no guarding, no rebound Genitourinary: no CVA tenderness, deferred Musculoskeletal: back normal, digits/nails normal, gait/station normal, normal range of motion, non-tender, other - no snuffbox tenderness, no swelling or ecchymosis, no erythema or edema Neurologic: alert, oriented x3, responsive, motor strength/tone normal, sensory intact Psychiatric: mood/affect normal Skin: no rash Medical Decision Making PA Attestation Dr. Wilde is my supervising Physician whom patient management has been discussed with. Diagnostic Impression: Primary Impression: Wrist sprain Additional Impression: Dysuria ER Course Pt. presents to the ED c/o dysuria and right wrist pain. Ddx considered but are not limited to fracture, sprain, strain, contusion, dislocation, UTI, epididymitis, urethritis, STI. No erythema, no warmth to touch, no fever, nontoxic appearing, low suspicion for septic joint. Vital signs: are WNL, pt. is afebrile Ordered X-ray, UA and pain medication. ER COURSE ordered UA, will provide patient tx to cover for gonorrhea and chlamydia. instructed patient to inform partners of need for testing. Follow-up with STI clinic or PCP for further testing and evaluation. WEar condoms during sex, avoid sexual activity for 2 weeks. Needs testing for other STI's. Patient reports understanding and states will followup. UA results show no signs of infection, negative, does not require abx treatment for epididymitis or urethritis. Followup with PCP, drink plenty of water. Provided with pain medication. An X-ray of the right wrist shows no acute fracture per the preliminary reading. Likely wrist sprain. Provided patient with wrist Splint, was applied to the right wrist was checked afterwards by me showing good alignment and support with distal neurovascular functioning intact. Patient instructed on RICE method: rest, ice, compression, elevation. Patient instructed on rest, ice and heat. Patient instructed to be WBAT Followup with primary care provider. Discuss referral to ortho/pain management/ PT as needed. Discuss further imaging with MRI/CT as needed. DISCHARGE: -Rx provided for Ibuprofen for pain symptoms. At this time pt. is stable for d/c to home. Patient is resting comfortably, in no acute distress, nontoxic appearing, talking without difficulty. Will provide printed patient care instructions, and any necessary prescriptions. Patient instructed to follow with primary care provider in 3 - 5 days and to request further follow-up as needed. Care plan and follow up instructions have been discussed with the patient prior to discharge. Take medications as directed. Patient questions asked and answered. Patient reports understanding and agreement to treatment plan. ER precautions given, patient instructed to return to ER immediately for any new or worsening of symptoms. - Please note that this Emergency Department Report was dictated using Halal[employer]licopter pilot technology software, occasionally this can lead to erroneous entry secondary to interpretation by the dictation equipment. Labs Test 09/15/17 14:33 Urine Color Pale yellow Urine Appearance Clear Urine pH 8 (4.5-8.0) Urine Specific [place] 1.015 (1.005-1.035) Urine Protein Negative (NEGATIVE) Urine Glucose (UA) Negative (NEGATIVE) Urine Ketones Negative (NEGATIVE) Urine Occult Blood Negative (NEGATIVE) Urine Nitrite Negative (NEGATIVE) Urine Bilirubin Negative (NEGATIVE) Urine Urobilinogen Normal MG/DL (0.0-1.0) Urine Leukocyte Esterase Negative (NEGATIVE) Other X-Ray Diagnostic Results Other X-Ray Diagnostic Results : X-Ray ordered: right wrist # of Views/Limited Vs Complete: 3 View Indication: Pain EP Interpretation: Yes PA Xray: Interpretation reviewed, by supervising MD, and agrees with findings. Interpretation: no dislocation, no soft tissue swelling, no fractures Impression: No acute disease PA Scribe Text David Ybarra PA-C Last Vital Signs Date Time Temp Pulse Resp B/P (MAP) Pulse Ox O2 Delivery O2 Flow Rate FiO2 09/15/17 13:28 98.2 76 18 142/78 94 Room Air 98.2 Disposition: HOME, SELF-CARE Condition: Stable Scripts Ibuprofen* (MOTRIN*) 600 Mg Tablet 600 MG ORAL Q8H PRN for For Pain, #30 TAB 0 Refills Prov: Vickey Ybarra 09/15/17 Referrals: NON PHYSICIAN (PCP) Patient Instructions: Dysuria, Sexually Transmitted Disease, [id number], Wrist Sprain Additional Instructions: Patient instructed to follow up with primary care provider and discuss further referral to orthopedics. Patient instructed on RICE method: rest, ice, compression, elevation. Patient instructed to WBAT. Take medications as directed. Followup with STI clinic or PCP for further testing and treatment for sexually transmitted infections. Drink plenty of water. Wear condoms during sex. Avoid sexual activity for 2 weeks. Alert all sexual partners of need for testing and treatment. Patient questions asked and answered. ER precautions given, patient instructed to return to ER immediately for any new or worsening of symptoms. Vickey Ybarra Sep 15, 2017 14:06
[2017-09-15] MEDS ORDERED: IBUPROFEN600 MG ORAL (14:23)
[2017-09-15 14:44] LABS: APPEARANCE,URINE CLEAR; BILIRUBIN, URINE NEGATIVE (NEGATIVE); COLOR,URINE PALE YELLOW; GLUCOSE, URINE (UA) NEGATIVE (NEGATIVE); KETONES,URINE NEGATIVE (NEGATIVE); LEUKOCYTE ESTERASE ,URINE NEGATIVE (NEGATIVE); NITRITE,URINE NEGATIVE (NEGATIVE); PH,URINE 8 (4.5-8.0); PROTEIN,URINE NEGATIVE (NEGATIVE); UROBILINOGEN,URINE NORMAL MG/DL (0.0-1.0)
[2017-09-15 15:01] VITALS: BP 142/78
--- NOTE | 2017-09-15 15:17 | Diagnostic Imaging Report ---
Clinical Indication:Pain, status post fall one week ago Technique: 3 views of the right wrist Comparison: None Findings: No acute fractures. No dislocations. Joint spaces are preserved Impression: Negative
== END 2017-09-15 15:04 | disposition home or self-care (01) ==
LOC: EMR 13:59
DX: S63.501A Unspecified sprain of right wrist, initial encounter (principal); W01.0XXA Fall on same level from slipping, tripping and stumbling without subsequent striking against object, initial encounter; Y92.9 Unspecified place or not applicable; R30.0 Dysuria; I10 Essential (primary) hypertension; J45.909 Unspecified asthma, uncomplicated
CPT/HCPCS: 73110; 81003; 96372; 99283; J0696

== ENCOUNTER 2017-11-13 20:28 | Emergency (ER) | payer OTHER ==
[~2017-11-13] VITALS: Ht 175.3 cm; Wt 104.3 kg
[2017-11-13] MEDS ORDERED: Ketorolac 30mg Inj IV ONE (21:30)
[2017-11-13] MEDS ORDERED: Metoclopramide 10mg/2ml Inj IVP ONE (21:30)
--- NOTE | 2017-11-13 21:36 | Emergency Room Report ---
History of Present Illness General Chief Complaint: Pain Source: Patient, Medical Record Present Illness HPI 27-year-old male presents ED for evaluation. Patient is complaining of generalized pain, headache, diarrhea 1 day. Pain is dull, 7 out of 10, nonradiating. Notes nausea, vomiting, diarrhea. Complaining of chest tightness. History of asthma. States his heart is racing. Denies fevers or chills. Denies sick contacts or recent travel. Denies recent antibiotic use. No other aggravating relieving factors. Denies any other associated symptoms Allergies: Coded Allergies: No Known Allergies (Unverified , 09/30/13) Patient History Past Medical History: HTN, asthma Past Surgical History: none Pertinent Family History: none Social History: Denies: smoking, alcohol use, drug use Immunizations: UTD Reviewed Nursing Documentation: PMH: Agreed; PSxH: Agreed Nursing Documentation-PMH Hx Hypertension: Yes Hx Asthma: Yes Hx COPD: No - bronchitis Review of Systems All Other Systems: negative except mentioned in HPI Physical Exam Vital Signs Date Time Temp Pulse Resp B/P (MAP) Pulse Ox O2 Delivery O2 Flow Rate FiO2 11/13/17 21:03 99.9 85 15 129/87 98 Room Air 99.9 Sp02 EP Interpretation: reviewed, normal General Appearance: no apparent distress, alert, GCS 15, non-toxic Head: normocephalic, atraumatic Eyes: bilateral eye normal inspection, bilateral eye PERRL ENT: hearing grossly normal, normal pharynx, no angioedema, normal voice Neck: full range of motion, supple, no meningismus, supple/symm/no masses Respiratory: chest non-tender, lungs clear, normal breath sounds, speaking full sentences Cardiovascular #1: regular rate, rhythm, no edema Cardiovascular #2: 2+ carotid (R), 2+ carotid (L), 2+ radial (R), 2+ radial (L) , 2+ dorsalis pedis (R), 2+ dorsalis pedis (L) Gastrointestinal: normal bowel sounds, non tender, soft, non-distended, no guarding, no rebound Rectal: deferred Genitourinary: normal inspection, no CVA tenderness Musculoskeletal: back normal, gait/station normal, normal range of motion, non- tender Neurologic: alert, oriented x3, responsive, motor strength/tone normal, sensory intact, speech normal Psychiatric: judgement/insight normal, memory normal, mood/affect normal, no suicidal/homicidal ideation Reflexes: 3+ bicep (R), 3+ bicep (L), 3+ tricep (R), 3+ tricep (L), 3+ knee (R) , 3+ knee (L) Skin: normal color, no rash, warm/dry, well hydrated Lymphatic: no adenopathy Medical Decision Making Diagnostic Impression: Primary Impression: Viral syndrome ER Course Hospital Course 27-year-old M presents to ED with cramping abdominal pain with vomiting, diarrhea, headache differential diagnosis: gastroenterits, viral syndrome, pneumonia Clinical course Patient placed on stretcher. 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 After initial history and physical I ordered labs, IV fluids, pepcid, zofran, CXR Labs - no leukocytosis, electrolytes ok, LFTs normal CXR - no acute process Upon reassessment, patient states he feels better. discussed findings with patient. likely viral syndrome. safe for discharge with close outpatient followup I feel this is a highly complex case requiring extensive working including EKG/ Rhythm strip, Xray/CT/US, Blood/urine lab work, repeat exams while in ED, and administration of strong opiates/narcotics for pain control, admission to hospital or close patient follow up. Diagnosis - viral syndrome Stable and discharged to home with prescriptions for Motrin. Followup with PMD. Return to ED if symptoms recur or worsen Labs Test 11/13/17 21:30 White Blood Count 5.3 K/UL (4.8-10.8) Red Blood Count 5.94 M/UL (4.70-6.10) Hemoglobin 16.5 G/DL (14.2-18.0) Hematocrit 52.5 % (42.0-52.0) Mean Corpuscular Volume 88 FL (80-99) Mean Corpuscular Hemoglobin 27.8 PG (27.0-31.0) Mean Corpuscular Hemoglobin Concent 31.4 G/DL (32.0-36.0) Red Cell Distribution Width 12.6 % (11.6-14.8) Platelet Count 115 K/UL (150-450) Mean Platelet Volume 12.0 FL (6.5-10.1) Neutrophils (%) (Auto) 74.6 % (45.0-75.0) Lymphocytes (%) (Auto) 9.9 % (20.0-45.0) Monocytes (%) (Auto) 12.8 % (1.0-10.0) Eosinophils (%) (Auto) 0.6 % (0.0-3.0) Basophils (%) (Auto) 2.1 % (0.0-2.0) Sodium Level 138 MMOL/L (136-145) Potassium Level 3.6 MMOL/L (3.5-5.1) Chloride Level 100 MMOL/L (98-107) Carbon Dioxide Level 31 MMOL/L (21-32) Anion Gap 7 mmol/L (5-15) Blood Urea Nitrogen 16 mg/dL (7-18) Creatinine 1.3 MG/DL (0.55-1.30) Estimat Glomerular Filtration Rate > 60 mL/min (>60) Glucose Level 86 MG/DL (74-106) Calcium Level 9.6 MG/DL (8.5-10.1) Total Bilirubin 0.4 MG/DL (0.2-1.0) Aspartate Amino Transf (AST/SGOT) 44 U/L (15-37) Alanine Aminotransferase (ALT/SGPT) 52 U/L (12-78) Alkaline Phosphatase 70 U/L (46-116) Total Protein 8.1 G/DL (6.4-8.2) Albumin 4.2 G/DL (3.4-5.0) Globulin 3.9 g/dL Albumin/Globulin Ratio 1.1 (1.0-2.7) Lipase 142 U/L (73-393) Chest X-Ray Diagnostic Results Chest X-Ray Diagnostic Results : Chest X-Ray Ordered: Yes # of Views/Limited/Complete: 1 View Indication: Shortness of Breath EP Interpretation: Yes Interpretation: no consolidation, no effusion, no pneumothorax, no acute cardiopulmonary disease Impression: No acute disease Electronically Signed by: Electronically signed by Preston Hager MD Last Vital Signs Date Time Temp Pulse Resp B/P (MAP) Pulse Ox O2 Delivery O2 Flow Rate FiO2 11/13/17 21:03 99.9 85 15 129/87 98 Room Air 99.9 Status: improved Disposition: HOME, SELF-CARE Condition: Stable Scripts Ibuprofen* (MOTRIN*) 600 Mg Tablet 600 MG ORAL Q8H PRN for For Pain, #30 TAB 0 Refills Prov: [place],Preston MD 11/13/17 Referrals: [facility],REFERRING (PCP) Preston Hager MD Nov 13, 2017 21:36
[2017-11-13 21:41] LABS: BASOPHILS % (AUTO) 2.1 % (0.0-2.0); EOSINOPHILS % (AUTO) 0.6 % (0.0-3.0); HEMATOCRIT 52.5 % (42.0-52.0); HEMOGLOBIN 16.5 G/DL (14.2-18.0); LYMPHOCYTES % (AUTO) 9.9 % (20.0-45.0); MEAN CORPUSCULAR VOLUME 88 FL (80-99); MONOCYTES % (AUTO) 12.8 % (1.0-10.0); NEUTROPHILS % (AUTO) 74.6 % (45.0-75.0); PLATELET COUNT 115 K/UL (150-450); RED BLOOD COUNT 5.94 M/UL (4.70-6.10); RED CELL DISTRIBUTION WIDTH 12.6 % (11.6-14.8); WHITE BLOOD COUNT 5.3 K/UL (4.8-10.8)
[2017-11-13 21:47] LABS: ANION GAP 7 mmol/L (5-15); BLOOD UREA NITROGEN 16 mg/dL (7-18); CALCIUM 9.6 MG/DL (8.5-10.1); CARBON DIOXIDE 31 MMOL/L (21-32); CHLORIDE 100 MMOL/L (98-107); CREATININE 1.3 MG/DL (0.55-1.30); POTASSIUM 3.6 MMOL/L (3.5-5.1); SODIUM 138 MMOL/L (136-145)
[2017-11-13 21:52] LABS: ALANINE AMINOTRANSFERASE 52 U/L (12-78); ALBUMIN 4.2 G/DL (3.4-5.0); ALBUMIN/GLOBULIN RATIO 1.1 (1.0-2.7); ALKALINE PHOSPHATASE 70 U/L (46-116); ASPARTATE AMINO TRANSFERASE 44 U/L (15-37); BILIRUBIN,TOTAL 0.4 MG/DL (0.2-1.0)
[2017-11-13] MEDS ORDERED: IBUPROFEN600 MG ORAL (22:11)
--- NOTE | 2017-11-13 22:16 | Diagnostic Imaging Report ---
EXAM: XR Chest, 1 View CLINICAL HISTORY: COUGH TECHNIQUE: Frontal view of the chest. COMPARISON: Chest radiograph 11/05/15 FINDINGS: Lungs: No acute cardiopulmonary disease. Pleural space: Unremarkable. No pneumothorax. Heart: Unremarkable. No cardiomegaly. Mediastinum: Unremarkable. Bones/joints: Unremarkable. IMPRESSION: 1. No acute cardiopulmonary disease. 2. If there is continued concern, recommend formal frontal and lateral chest radiographs.
[2017-11-13 23:59] VITALS: BP 129/87
== END 2017-11-13 22:05 | disposition home or self-care (01) ==
LOC: EMR 21:05
DX: B34.9 Viral infection, unspecified (principal); I10 Essential (primary) hypertension; J45.909 Unspecified asthma, uncomplicated
CPT/HCPCS: 36415; 71045; 80053; 83690; 85025; 96361; 96374; 96375; 99284; J1885; J2765; S0028

== ENCOUNTER 2017-11-15 17:56 | Inpatient (IN) | payer OTHER ==
[~2017-11-15] VITALS: Ht 177.8 cm; Wt 99.8 kg
[2017-11-15] MEDS ORDERED: Morphine Sulfate 4mg/ml Inj (IV USE ONLY) IVP ONE (18:45)
[2017-11-15 19:38] LABS: APPEARANCE,URINE CLEAR; BILIRUBIN, URINE NEGATIVE (NEGATIVE); COLOR,URINE PALE YELLOW; GLUCOSE, URINE (UA) NEGATIVE (NEGATIVE); KETONES,URINE 1+ (NEGATIVE); LEUKOCYTE ESTERASE ,URINE NEGATIVE (NEGATIVE); NITRITE,URINE NEGATIVE (NEGATIVE); PH,URINE 7 (4.5-8.0); PROTEIN,URINE NEGATIVE (NEGATIVE); UROBILINOGEN,URINE NORMAL MG/DL (0.0-1.0)
[2017-11-15 19:42] LABS: HEMATOCRIT 52.8 % (42.0-52.0); HEMOGLOBIN 17.3 G/DL (14.2-18.0); MEAN CORPUSCULAR VOLUME 89 FL (80-99); PLATELET COUNT 95 K/UL (150-450); RED BLOOD COUNT 5.96 M/UL (4.70-6.10); RED CELL DISTRIBUTION WIDTH 12.5 % (11.6-14.8)
[2017-11-15 19:46] LABS: ANION GAP 7 mmol/L (5-15); BLOOD UREA NITROGEN 12 mg/dL (7-18); CALCIUM 9.4 MG/DL (8.5-10.1); CARBON DIOXIDE 31 MMOL/L (21-32); CHLORIDE 99 MMOL/L (98-107); CREATININE 1.4 MG/DL (0.55-1.30); POTASSIUM 3.5 MMOL/L (3.5-5.1); SODIUM 137 MMOL/L (136-145)
[2017-11-15 19:55] LABS: ALANINE AMINOTRANSFERASE 50 U/L (12-78); ALBUMIN 4.3 G/DL (3.4-5.0); ALKALINE PHOSPHATASE 72 U/L (46-116); ASPARTATE AMINO TRANSFERASE 42 U/L (15-37); BILIRUBIN,TOTAL 0.4 MG/DL (0.2-1.0); CREATINE KINASE 949 U/L (26-308)
[2017-11-15] MEDS ORDERED: HYDROmorphone 1mg/ml Carpuject IVP ONE ×2 (20:00→21:30)
--- NOTE | 2017-11-15 20:06 | Emergency Room Report ---
History of Present Illness General Chief Complaint: Abdominal Pain Source: Patient, Medical Record Present Illness HPI Patient presented several days ago. His been persistently vomiting and having abdominal pain. Is given a prescription for Motrin which is causing the pain to get worse. He's been vomiting blood. He's had some loose stools but no melena. The pain is in 2 areas of his abdomen. He's been using an ice pack with some help but the pain is 10/10 and constant and aching radiating to his back. He had similar pain and vomiting when he had pancreatitis in the past. He passed out yesterday - unclear circumstances. The diagnosis 2 days ago was gastroenteritis. No chest pain, sore throat, headache, rashes, joint pain. He was seen 08/11 for flank pain. A CT was done which was negative. Diagnosis of pancreatitis was in . Lipase was 300 (normal < 60). Was able to be treated as outpatient. In the past, multiple visits for falls and musculoskeletal injuries. Also h/o STD treatment. H/O asthma. No wheezing. Steroid use in past. Allergies: Coded Allergies: No Known Allergies (Unverified , 11/15/17) Patient History Past Medical History: see triage record Social History: Reports: drug use - THC; Denies: smoking Social History Narrative with friend Reviewed Nursing Documentation: PMH: Agreed; PSxH: Agreed Nursing Documentation-PM Past Medical History: No History, Except For Hx Hypertension: Yes Hx Asthma: Yes Hx COPD: No - bronchitis Review of Systems All Other Systems: negative except mentioned in HPI Physical Exam Vital Signs Date Time Temp Pulse Resp B/P (MAP) Pulse Ox O2 Delivery O2 Flow Rate FiO2 11/15/17 18:21 101.0 84 15 148/104 98 Room Air 100.9 Sp02 EP Interpretation: reviewed, normal General Appearance: well appearing, no apparent distress, GCS 15 Head: normocephalic Eyes: bilateral eye normal inspection, bilateral eye PERRL ENT: moist mucus membranes Neck: supple Respiratory: lungs clear, normal breath sounds Cardiovascular #1: regular rate, rhythm Cardiovascular #2: 2+ radial (R) Gastrointestinal: normal inspection, normal bowel sounds, no mass, non- distended, no guarding, no rebound, tenderness - mid abdomen and RLQ, overweight Musculoskeletal: back normal, gait/station normal, normal range of motion Neurologic: alert, oriented x3, grossly normal Psychiatric: depressed affect Skin: normal inspection, warm/dry Medical Decision Making Diagnostic Impression: Primary Impression: Intractable abdominal pain Additional Impressions: Persistent vomiting Renal insufficiency Dehydration Syncope Qualified Codes: R55 - Syncope and collapse ER Course Patient with abdominal pain, vomiting blood and weakness. DDx: pancreatitis, gastritis, diverticulitis, appendicitis, abdominal migraine, ischemia amongst others. Evaluation with labs and abd film. Treatment with IV hydration, pepcid , zofran and morphine. Review of past visits to ED do not reveal excessive analgesic use - also responded to ED treatments with improvement. MS "did not touch the pain". Labs with normal WBC. Increased H/H (higher than 2 days ago). Elevated creat ( higher than 2 days ago and in July). Urine ketones. Abd film unremarkable. Patient still with abd pain "the same" after ms and dilaudid. Soft. Dilaudid repeat and CT abdomen pelvis ordered. Pain still "severe". Discussed with Dr. Hernandez who accepts for admission. CT unremarkable. Laboratory Tests Test 11/15/17 19:10 White Blood Count 4.0 K/UL (4.8-10.8) L Red Blood Count 5.96 M/UL (4.70-6.10) Hemoglobin 17.3 G/DL (14.2-18.0) Hematocrit 52.8 % (42.0-52.0) H Mean Corpuscular Volume 89 FL (80-99) Mean Corpuscular Hemoglobin 29.0 PG (27.0-31.0) Mean Corpuscular Hemoglobin Concent 32.7 G/DL (32.0-36.0) Red Cell Distribution Width 12.5 % (11.6-14.8) Platelet Count 95 K/UL (150-450) L Mean Platelet Volume 10.5 FL (6.5-10.1) H Neutrophils (%) (Auto) % (45.0-75.0) Lymphocytes (%) (Auto) % (20.0-45.0) Monocytes (%) (Auto) % (1.0-10.0) Eosinophils (%) (Auto) % (0.0-3.0) Basophils (%) (Auto) % (0.0-2.0) Differential Total Cells Counted 100 Neutrophils % (Manual) 63 % (45-75) Lymphocytes % (Manual) 16 % (20-45) L Monocytes % (Manual) 19 % (1-10) H Eosinophils % (Manual) 0 % (0-3) Basophils % (Manual) 1 % (0-2) Band Neutrophils 1 % (0-8) Platelet Estimate Decreased L Platelet Morphology Normal Red Blood Cell Morphology Normal Prothrombin Time 10.9 SEC (9.30-11.50) Prothrombin Time INR 1.0 (0.9-1.1) PTT 34 SEC (23-33) H Urine Color Pale yellow Urine Appearance Clear Urine pH 7 (4.5-8.0) Urine Specific [place] 1.010 (1.005-1.035) Urine Protein Negative (NEGATIVE) Urine Glucose (UA) Negative (NEGATIVE) Urine Ketones 1+ (NEGATIVE) H Urine Blood 1+ (NEGATIVE) H Urine Nitrite Negative (NEGATIVE) Urine Bilirubin Negative (NEGATIVE) Urine Urobilinogen Normal MG/DL (0.0-1.0) Urine Leukocyte Esterase Negative (NEGATIVE) Urine RBC 2-4 /HPF (0 - 0) H Urine WBC 0-2 /HPF (0 - 0) Urine Squamous Epithelial Cells Occasional /LPF Urine Bacteria Occasional /HPF (NONE) Sodium Level 137 MMOL/L (136-145) Potassium Level 3.5 MMOL/L (3.5-5.1) Chloride Level 99 MMOL/L (98-107) Carbon Dioxide Level 31 MMOL/L (21-32) Anion Gap 7 mmol/L (5-15) Blood Urea Nitrogen 12 mg/dL (7-18) Creatinine 1.4 MG/DL (0.55-1.30) H Estimate Glomerular Filtration Rate > 60 mL/min (>60) Glucose Level 86 MG/DL (74-106) Calcium Level 9.4 MG/DL (8.5-10.1) Total Bilirubin 0.4 MG/DL (0.2-1.0) Aspartate Amino Transferase (AST) 42 U/L (15-37) H Alanine Aminotransferase (ALT) 50 U/L (12-78) Alkaline Phosphatase 72 U/L (46-116) Total Creatine Kinase 949 U/L (26-308) H Troponin I 0.003 ng/mL (0.000-0.056) Total Protein 8.7 G/DL (6.4-8.2) H Albumin 4.3 G/DL (3.4-5.0) Globulin 4.4 g/dL Albumin/Globulin Ratio 1.0 (1.0-2.7) Lipase 119 U/L (73-393) Urine Opiates Screen Negative (NEGATIVE) Urine Barbiturates Screen Negative (NEGATIVE) Phencyclidine (PCP) Screen Negative (NEGATIVE) Urine Amphetamines Screen Negative (NEGATIVE) Urine Benzodiazepines Screen Negative (NEGATIVE) Urine Cocaine Screen Negative (NEGATIVE) Urine Marijuana (THC) Screen Positive (NEGATIVE) H Serum Alcohol < 3 mg/dL EKG Diagnostic Results Rate: normal Rhythm: NSR ST Segments: no acute changes Rhythm Strip Diag. Results EP Interpretation: yes Rhythm: NSR, no PVC's, no ectopy Other X-Ray Diagnostic Results Other X-Ray Diagnostic Results : X-Ray ordered: abd # of Views/Limited Vs Complete: 2 View Indication: Pain EP Interpretation: Yes Interpretation: nonspecific bowel gas, no sbo, other - some small bowel loops CT/MRI/US Diagnostic Results CT/MRI/US Diagnostic Results : Imaging Test Ordered: abd/pelvis Impression no surgical or urologic pathology Last Vital Signs Date Time Temp Pulse Resp B/P (MAP) Pulse Ox O2 Delivery O2 Flow Rate FiO2 11/15/17 23:14 Room Air 11/15/17 22:57 99.0 15 137/95 98 210.2 11/15/17 18:21 84 Status: improved Disposition: ADMITTED INPATIENT Condition: Serious Referrals: NON PHYSICIAN (PCP) Yeyo Pickard M.D. Nov 15, 2017 20:06
[2017-11-15 20:50] VITALS: BP 148/104
[2017-11-15] MEDS ORDERED: Isovue-300 100ml vial INJ PRN (21:30)
[2017-11-15 23:00] VITALS: BP 145/89
[2017-11-16] VITALS: BP 140/64
[2017-11-16] MEDS: Norco 5mg/325mg tab ORAL PRN ×4 (00:27→19:04)
[2017-11-16 04:00] VITALS: BP 121/61
[2017-11-16 08:00] VITALS: BP 124/83
--- NOTE | 2017-11-16 10:33 | Diagnostic Imaging Report ---
Indication: Abdominal pain Technique: Supine view of the abdomen Comparison: none Findings: Prominent borderline dilated small bowel loops are seen in the left mid abdomen. The remainder of the bowel gas pattern is unremarkable. No unusual masses or calcifications Impression: Prominent borderline dilated small bowel loops in the left mid abdomen. Nonspecific, could represent ileus, enteritis, much less likely early/partial small bowel obstruction. Correlate with clinical findings
--- NOTE | 2017-11-16 11:50 | Diagnostic Imaging Report ---
Clinical Indication: Abdominal pain for one week Technique: No oral contrast utilized, per emergency room physician request IV administration nonionic contrast. Venous phase spiral acquisition obtained through the abdomen and pelvis. Multiplanar reconstructions were generated. Total dose length product 823.47 mGycm. CTDIvol(s) 15.91 mGy. Dose reduction achieved using automated exposure control Comparison: 08/11/2017 noncontrast study, 11/27/2015 contrast exam Findings: Normal appendix. No evidence of diverticulosis or diverticulitis. No small bowel distention. No free or loculated intraperitoneal gas or fluid. There is a small fat-containing umbilical hernia. Contrast traverses entirety of the small bowel, barely reaches the cecum. No small bowel wall thickening. The liver is mildly hypoattenuating diffusely. No focal abnormality. Gallbladder, bile ducts, pancreas, spleen, adrenals, kidneys are unremarkable. No retroperitoneal or mesenteric mass or adenopathy. No pelvic mass or adenopathy. Reticular and nodular interstitial opacities and vague airspace opacities are seen at the left lung base. Some nodular opacities are also seen at the right lung base. These are not evident on the previous exam, although some similar findings were seen on the right on the 2016 exam. The bones are unremarkable. Impression: Bilateral left greater than right pulmonary parenchymal disease, with reticular and nodular changes and some groundglass opacity. This is nonspecific, could indicate atypical pneumonia versus noninfectious ventilatory process, among other possibilities Fatty liver No acute abdominal or pelvic process Findings represent a discrepancy from [facility] preliminary report. Discrepant findings phoned to attending physician Dr. Hernandez at the time of interpretation. [facility] also notified via their website The CT scanner at [facility] is accredited by the [employer] and the scans are performed using protocols designed to limit radiation exposure to as low as reasonably achievable to attain images of sufficient resolution adequate for diagnostic evaluation.
[2017-11-16 11:53] VITALS: BP 130/85
[2017-11-16] MEDS ORDERED: GI Cocktail 50ml ORAL PRN (12:45)
--- NOTE | 2017-11-16 13:13 | GI Initial Consult Note ---
History of Present Illness General Date patient seen: Nov 16, 2017 Time patient seen: 14:24 Reason for Hospitalization: Abdominal Pain Referring physician: CHIRAG ROBINS Reason for Consultation: ABDOMINAL PAIN Present Illness HPI Patient presented several days ago. His been persistently vomiting and having abdominal pain. Is given a prescription for Motrin which is causing the pain to get worse. He's been vomiting blood. He's had some loose stools but no melena. The pain is in 2 areas of his abdomen. He's been using an ice pack with some help but the pain is 10/10 and constant and aching radiating to his back. He had similar pain and vomiting when he had pancreatitis in the past. He passed out yesterday - unclear circumstances. The diagnosis 2 days ago was gastroenteritis. No chest pain, sore throat, headache, rashes, joint pain. He was seen 08/11 for flank pain. A CT was done which was negative. Diagnosis of pancreatitis was in . Lipase was 300 (normal < 60). Was able to be treated as outpatient. In the past, multiple visits for falls and musculoskeletal injuries. Also h/o STD treatment. H/O asthma. No wheezing. Steroid use in past. GI consulted for abdominal pain. Pt seen, awake A&Ox4 NAD with no active s/sx of N/V/D. Per patient his chronic marijuana user, mainly lifetime. He denies any diarrhea at this moment, in fact states he is constipated no BMx 3 days. States his entire abdomen hurts, and he has the sensation of it burning. Labs reviewed; Utox positive for marijuana. No anemia, mild leukopenia, normal lipase, unremarkable CTAP. No known history of endoscopy / colonoscopy. Home Meds Active Scripts Ibuprofen* (MOTRIN*) 600 Mg Tablet, 600 MG ORAL Q8H PRN for For Pain, #30 TAB 0 Refills Prov:Preston Hager MD 11/13/17 Ibuprofen* (MOTRIN*) 600 Mg Tablet, 600 MG ORAL Q8H PRN for For Pain, #30 TAB 0 Refills Prov:Vickey Ybarra 09/15/17 Lidocaine (Lidoderm) 1 Each Adh..patch, 1 PATCH TOPIC DAILY, #30 PATCH 0 Refills Patch(es) may remain in place for up to 12 hours in any 24-hour period. Prov:Rimma Beck 08/11/17 Acetaminophen* (TYLENOL EXTRA STRENGTH*) 500 Mg Tablet, 500 MG ORAL Q6H for pain , #20 TAB 0 Refills Prov:Rimma Beck 08/11/17 Dicyclomine Hcl* (DICYCLOMINE HCL*) 10 Mg Capsule, 10 MG PO QID, #20 CAP Prov:Blade Moody MD 07/28/17 Trimethoprim/Sulfamethoxazole 160/800* (BACTRIM DS TABLET*) 1 Each Tablet, 1 TAB ORAL TWICE A DAY, #14 TAB Prov:Blade Moody MD 07/28/17 Gentamicin Sulfate* (GENTAK*) 5 Ml Drops, 1 DROP BOTH EYES Q4H, #5 DROP 0 Refills Prov:Blade Moody MD 09/15/16 Cephalexin* (KEFLEX*) 500 Mg Capsule, 500 MG ORAL EVERY 12 HOURS, #14 CAP 0 Refills Prov:TERZIAN,GILBERT P.A. 09/11/16 Dextran 70/Hypromellose (ARTIFICIAL TEARS EYE DROPS*) 15 Ml Drops, 1 DROP BOTH EYES PRN, #15 ML 0 Refills Prov:TERZIAN,GILBERT P.A. 09/11/16 Ibuprofen* (MOTRIN*) 600 Mg Tablet, 600 MG ORAL Q8H PRN for For Pain, #30 TAB 0 Refills Prov:TERZIAN,GILBERT P.A. 09/11/16 Reported Medications No Known Medications* (NKM - No Known Medications*) ., 0 ., 0 Refills 09/30/13 Med list reviewed/reconciled: Yes Allergies: Coded Allergies: No Known Allergies (Unverified , 11/15/17) Patient History History Provided By: Patient PMH Narrative Past Medical History: see triage record Social History: Reports: drug use - THC; Denies: smoking Social History Narrative with friend Reviewed Nursing Documentation: PMH: Agreed; PSxH: Agreed Nursing Documentation-PMH Past Medical History: No History, Except For Hx Hypertension: Yes Hx Asthma: Yes Hx COPD: No - bronchitis Social History: Reports: drug use Review of Systems All Other Systems: negative except mentioned in HPI Physical Exam Vital Signs Date Time Temp Pulse Resp B/P (MAP) Pulse Ox O2 Delivery O2 Flow Rate FiO2 11/15/17 18:21 101.0 84 15 148/104 98 Room Air 100.9 Sp02 EP Interpretation: reviewed, normal Labs Laboratory Tests Test 11/15/17 19:10 White Blood Count 4.0 K/UL (4.8-10.8) L Red Blood Count 5.96 M/UL (4.70-6.10) Hemoglobin 17.3 G/DL (14.2-18.0) Hematocrit 52.8 % (42.0-52.0) H Mean Corpuscular Volume 89 FL (80-99) Mean Corpuscular Hemoglobin 29.0 PG (27.0-31.0) Mean Corpuscular Hemoglobin Concent 32.7 G/DL (32.0-36.0) Red Cell Distribution Width 12.5 % (11.6-14.8) Platelet Count 95 K/UL (150-450) L Mean Platelet Volume 10.5 FL (6.5-10.1) H Neutrophils (%) (Auto) % (45.0-75.0) Lymphocytes (%) (Auto) % (20.0-45.0) Monocytes (%) (Auto) % (1.0-10.0) Eosinophils (%) (Auto) % (0.0-3.0) Basophils (%) (Auto) % (0.0-2.0) Differential Total Cells Counted 100 Neutrophils % (Manual) 63 % (45-75) Lymphocytes % (Manual) 16 % (20-45) L Monocytes % (Manual) 19 % (1-10) H Eosinophils % (Manual) 0 % (0-3) Basophils % (Manual) 1 % (0-2) Band Neutrophils 1 % (0-8) Platelet Estimate Decreased L Platelet Morphology Normal Red Blood Cell Morphology Normal Prothrombin Time 10.9 SEC (9.30-11.50) Prothromb Time International Ratio 1.0 (0.9-1.1) Activated Partial Thromboplast Time 34 SEC (23-33) H Urine Color Pale yellow Urine Appearance Clear Urine pH 7 (4.5-8.0) Urine Specific [place] 1.010 (1.005-1.035) Urine Protein Negative (NEGATIVE) Urine Glucose (UA) Negative (NEGATIVE) Urine Ketones 1+ (NEGATIVE) H Urine Blood 1+ (NEGATIVE) H Urine Nitrite Negative (NEGATIVE) Urine Bilirubin Negative (NEGATIVE) Urine Urobilinogen Normal MG/DL (0.0-1.0) Urine Leukocyte Esterase Negative (NEGATIVE) Urine RBC 2-4 /HPF (0 - 0) H Urine WBC 0-2 /HPF (0 - 0) Urine Squamous Epithelial Cells Occasional /LPF Urine Bacteria Occasional /HPF (NONE) Sodium Level 137 MMOL/L (136-145) Potassium Level 3.5 MMOL/L (3.5-5.1) Chloride Level 99 MMOL/L (98-107) Carbon Dioxide Level 31 MMOL/L (21-32) Anion Gap 7 mmol/L (5-15) Blood Urea Nitrogen 12 mg/dL (7-18) Creatinine 1.4 MG/DL (0.55-1.30) H Estimat Glomerular Filtration Rate > 60 mL/min (>60) Glucose Level 86 MG/DL (74-106) Calcium Level 9.4 MG/DL (8.5-10.1) Total Bilirubin 0.4 MG/DL (0.2-1.0) Aspartate Amino Transf (AST/SGOT) 42 U/L (15-37) H Alanine Aminotransferase (ALT/SGPT) 50 U/L (12-78) Alkaline Phosphatase 72 U/L (46-116) Total Creatine Kinase 949 U/L (26-308) H Troponin I 0.003 ng/mL (0.000-0.056) Total Protein 8.7 G/DL (6.4-8.2) H Albumin 4.3 G/DL (3.4-5.0) Globulin 4.4 g/dL Albumin/Globulin Ratio 1.0 (1.0-2.7) Lipase 119 U/L (73-393) Urine Opiates Screen Negative (NEGATIVE) Urine Barbiturates Screen Negative (NEGATIVE) Phencyclidine (PCP) Screen Negative (NEGATIVE) Urine Amphetamines Screen Negative (NEGATIVE) Urine Benzodiazepines Screen Negative (NEGATIVE) Urine Cocaine Screen Negative (NEGATIVE) Urine Marijuana (THC) Screen Positive (NEGATIVE) H Serum Alcohol < 3 mg/dL General Appearance: well appearing, no apparent distress, alert Head: normocephalic EENT: PERRL/EOMI, normal ENT inspection Neck: supple Respiratory: normal breath sounds, no respiratory distress Cardiovascular: normal rate Gastrointestinal: normal inspection, non tender, soft, normal bowel sounds, non -distended Rectal: deferred Genitourinary: deferred Musculoskeletal: normal inspection, back normal Neurologic: normal inspection, alert, oriented x3, responsive Psychiatric: normal inspection, judgement/insight normal, memory normal Skin: normal inspection, normal color, no rash, warm/dry, palpation normal, well hydrated Lymphatic: normal inspection, no adenopathy Current Medications Current Medications Medications (Trade) Dose Ordered Sig/Elvin Route PRN Reason Start Time Stop Time Status Last Admin Dose Admin Acetaminophen/ Hydrocodone Bitart ([employer] 5/325) 1 tab Q6H PRN ORAL Severe Pain (Pain Scale 7-10) 11/15/17 23:15 11/22/17 23:14 11/16/17 12:42 Barium Sulfate (Readi-Cat 2) 450 ml NOW PRN ORAL Radiology Procedure 11/15/17 21:30 11/17/17 21:24 Dextrose/ Electrolytes 1,000 ml @ 75 mls/hr [id number] IV 11/15/17 23:45 12/15/17 23:44 11/16/17 10:34 Iopamidol (Isovue-300 100ml) 100 ml NOW PRN INJ Radiology Procedure 11/15/17 21:30 Ondansetron HCl (Zofran) 4 mg Q6H PRN IVP Nausea & Vomiting 11/15/17 23:15 12/15/17 23:14 GI: Plan Problems: (1) Cyclic vomiting syndrome (2) Intractable abdominal pain (3) Dehydration (4) Persistent vomiting (5) Abdominal pain Plan utox positive for marijuana lipase normal CTAP negative symptomatic treatment zofran prn, reglan for persistent vomiting GI cocktail prn IV/PO hydration + electrolyte correction adv to regular diet as tolerated ppi fu labs Discussed with Dr. Farley. Thank you for this patient referral, we will follow. The patient was seen and examined at bedside and all new and available data was reviewed in the patients chart. I agree with the above findings, impression and plan. (Patient seen earlier today. Signature stamp does not reflect patient encounter time.). - MD Keira Simeon,[facility] [employer] Nov 16, 2017 13:13
--- NOTE | 2017-11-16 15:45 | History and Physical Report ---
DATE OF ADMISSION: 11/15/2017 HISTORY OF PRESENT ILLNESS: This is a 27-year-old male, who presented to the emergency room with complaints of abdominal pain. The patient states he has a previous history of pancreatitis several years ago with no known etiology. He again started having abdominal pain. He also points to the left flank area. He states he had a brief episode of nausea, emesis, and diarrhea loose and watery, but this has resolved. He still complains of pain, received morphine in the emergency room. There is no other family member, who has been sick. The patient underwent a CT of the abdomen, which was negative. He underwent laboratory testing, which was negative. At this time, he is admitted for subsequent management and care. PAST MEDICAL HISTORY: Previous history of pancreatitis. HOME MEDICATIONS: None. ALLERGIES: None. PAST SURGICAL HISTORY: None. REVIEW OF SYSTEMS: Denies any headaches. No hematemesis. No melena. He admits to having nausea and watery diarrhea. PHYSICAL EXAMINATION: GENERAL: Reveals a 27-year-old male. HEENT: Unremarkable. LUNGS: Clear breath sounds bilaterally. ABDOMEN: Soft with mild left upper quadrant discomfort. EXTREMITIES: There is no edema. NEUROLOGIC: Nonfocal. LABORATORY DATA: Lab testing showed normal CBC and BMP with borderline low white count of 4000 and platelet count was low at 75,000. Creatinine 1.4. Total CK , which is elevated. AST is 42, ALT is 50. Troponin is negative. Coags are negative. Urine toxicology is positive for marijuana. IMPRESSION: 1. Marijuana use. 2. Abdominal pain. 3. Elevated CK. 4. Neutropenia. 5. Thrombocytopenia. 6. Borderline elevated renal function. DISCUSSION: Admit to the hospital. We will start IV fluids. Consult Gastroenterology. Provide pain medication with [place], antiemetics with Zofran. We will order SCDs. We will do imaging studies when done. Await GI consultation. We will follow. Marcelino Hernandez M.D. DR: GENOVEVA JOB#: [id number] CC:
--- NOTE | 2017-11-16 15:49 | Cardiology Report ---
APPROVED REPORT EKG Measurement Heart [id number] ME [id number] Normal sinus rhythm Normal ECG
[2017-11-16 16:00] VITALS: BP 130/88
[2017-11-16 20:00] VITALS: BP 137/83
[2017-11-17 00:12] VITALS: BP 133/80
[2017-11-17 04:23] VITALS: BP 130/88
[2017-11-17 07:51] LABS: HEMATOCRIT 53.5 % (42.0-52.0); HEMOGLOBIN 17.5 G/DL (14.2-18.0); MEAN CORPUSCULAR VOLUME 88 FL (80-99); PLATELET COUNT 92 K/UL (150-450); WHITE BLOOD COUNT 3.5 K/UL (4.8-10.8)
[2017-11-17 08:00] VITALS: BP 124/80
[2017-11-17 08:06] LABS: ANION GAP 10 mmol/L (5-15); BLOOD UREA NITROGEN 9 mg/dL (7-18); CALCIUM 8.9 MG/DL (8.5-10.1); CARBON DIOXIDE 26 MMOL/L (21-32); CHLORIDE 101 MMOL/L (98-107); CREATININE 1.2 MG/DL (0.55-1.30); POTASSIUM 3.8 MMOL/L (3.5-5.1); SODIUM 137 MMOL/L (136-145)
--- NOTE | 2017-11-17 08:27 | Pulmonology Progress Note ---
Assessment/Plan Assessment/Plan IMPRESSION: 1. Marijuana use. 2. Abdominal pain. 3. Elevated CK. 4. Neutropenia. 5. Thrombocytopenia. 6. Borderline elevated renal function. 7. Probable pneumonia DISCUSSION: Continue IV fluids. Seen by Gastroenterology. Provide pain medication with [place], antiemetics with Zofran. On SCDs. WIll consult ID Subjective Interval Events: Low grade fever; also diarrhea Constitutional: Reports: no symptoms HEENT: Repors: no symptoms Respiratory: Reports: productive cough, shortness of breath Cardiovascular: Reports: no symptoms Gastrointestinal/Abdominal: Reports: diarrhea Allergies: Coded Allergies: No Known Allergies (Unverified , 11/15/17) Objective Last 24 Hour Vital Signs Date Time Temp Pulse Resp B/P (MAP) Pulse Ox O2 Delivery O2 Flow Rate FiO2 11/17/17 06:30 98.8 98.8 11/17/17 05:30 100.7 100.7 11/17/17 04:23 100.7 92 17 130/88 (102) 96 100.7 11/17/17 00:12 99.2 65 18 133/80 (97) 94 99.2 11/16/17 21:00 Room Air 11/16/17 20:00 99.7 71 19 137/83 (101) 94 99.7 11/16/17 16:00 99.3 65 20 130/88 (102) 98 99.3 11/16/17 11:53 99.3 70 18 130/85 (100) 99 99.3 11/16/17 09:00 Room Air Intake and Output 11/16/17 11/17/17 19:00 07:00 Intake Total 1100 ml 360 ml Output Total 50 ml Balance 1050 ml 360 ml Intake Oral 100 ml 360 ml IV Total 1000 ml Output Emesis 50 ml # Voids 5 2 General Appearance: no acute distress HEENT: normocephalic Respiratory/Chest: chest wall non-tender, decreased breath sounds Cardiovascular: normal peripheral pulses, normal rate Abdomen: normal bowel sounds Laboratory Tests 11/17/17 07:05: White Blood Count 3.5L, Red Blood Count 6.10, Hemoglobin 17.5, Hematocrit 53.5H , Mean Corpuscular Volume 88, Mean Corpuscular Hemoglobin 28.7, Mean Corpuscular Hemoglobin Concent 32.7, Red Cell Distribution Width 12.0, Platelet Count 92L, Mean Platelet Volume 10.3H, Neutrophils (%) (Auto) , Lymphocytes (%) (Auto) , Monocytes (%) (Auto) , Eosinophils (%) (Auto) , Basophils (%) (Auto) , Neutrophils % (Manual) [Pending], Lymphocytes % (Manual) [Pending], Platelet Estimate [Pending], Platelet Morphology [Pending], Sodium Level 137, Potassium Level 3.8, Chloride Level 101, Carbon Dioxide Level 26, Anion Gap 10, Blood Urea Nitrogen 9, Creatinine 1.2, Estimat Glomerular Filtration Rate > 60, Glucose Level 104, Calcium Level 8.9 Current Medications Medications (Trade) Dose Ordered Sig/Elvin Route PRN Reason Start Time Stop Time Status Last Admin Dose Admin Acetaminophen/ Hydrocodone Bitart ([place] 5/325) 1 tab Q6H PRN ORAL Severe Pain (Pain Scale 7-10) 11/15/17 23:15 11/22/17 23:14 11/16/17 19:04 Barium Sulfate (Readi-Cat 2) 450 ml NOW PRN ORAL Radiology Procedure 11/15/17 21:30 11/17/17 21:24 Dextrose/ Electrolytes 1,000 ml @ 75 mls/hr [id number] IV 11/15/17 23:45 12/15/17 23:44 11/17/17 01:32 Iopamidol (Isovue-300 100ml) 100 ml NOW PRN INJ Radiology Procedure 11/15/17 21:30 Levofloxacin 100 ml @ 100 mls/hr Q24H IVPB 11/16/17 17:30 11/23/17 17:29 11/16/17 17:26 Metoclopramide HCl (Reglan) 5 mg Q6H PRN ORAL Nausea & Vomiting 11/16/17 14:30 12/16/17 14:29 11/16/17 18:11 Ondansetron HCl (Zofran) 4 mg Q6H PRN IVP Nausea & Vomiting 11/15/17 23:15 12/15/17 23:14 11/16/17 18:02 Pantoprazole (Protonix) 40 mg DAILY ORAL 11/17/17 09:00 12/17/17 08:59 11/17/17 08:24 Marcelino Hernandez MD Nov 17, 2017 08:27
[2017-11-17] MEDS: Albuterol ud Inhalation HHN PRN ×2 (10:45→15:18)
[2017-11-17 11:57] VITALS: BP 132/90
--- NOTE | 2017-11-17 12:09 | GI Progress Note ---
Assessment/Plan Problems: (1) Intractable abdominal pain ICD Codes: R10.9 - Unspecified abdominal pain SNOMED: 62834910, 167489063 (2) Cyclic vomiting syndrome ICD Codes: G43.A0 - Cyclical vomiting, not intractable SNOMED: 47087231 (3) Dehydration ICD Codes: E86.0 - Dehydration SNOMED: 32724207 (4) Persistent vomiting ICD Codes: R11.10 - Vomiting, unspecified SNOMED: 392429119, 657221438 Status: unchanged Status Narrative Discussed with Dr. Farley. Assessment/Plan utox positive for marijuana lipase normal CTAP negative symptomatic treatment abx zofran prn, reglan for persistent vomiting GI cocktail prn IV/PO hydration + electrolyte correction adv to regular diet as tolerated ppi fu labs The patient was seen and examined at bedside and all new and available data was reviewed in the patients chart. I agree with the above findings, impression and plan. (Patient seen earlier today. Signature stamp does not reflect patient encounter time.). - Mohan Farley MD Subjective Gastrointestinal/Abdominal: Reports: abdominal pain Subjective abdominal pain less, states he has SOB Objective Last 24 Hour Vital Signs Date Time Temp Pulse Resp B/P (MAP) Pulse Ox O2 Delivery O2 Flow Rate FiO2 11/17/17 11:57 98.6 72 20 132/90 (104) 98 98.6 11/17/17 10:52 85 18 99 Room Air 21 11/17/17 10:45 81 16 Room Air 21 11/17/17 10:45 81 16 99 Room Air 21 11/17/17 09:00 Room Air 11/17/17 08:00 98.6 73 21 124/80 (95) 98 98.6 11/17/17 06:30 98.8 98.8 11/17/17 05:30 100.7 100.7 11/17/17 04:23 100.7 92 17 130/88 (102) 96 100.7 11/17/17 00:12 99.2 65 18 133/80 (97) 94 99.2 11/16/17 21:00 Room Air 11/16/17 20:00 99.7 71 19 137/83 (101) 94 99.7 11/16/17 16:00 99.3 65 20 130/88 (102) 98 99.3 Intake and Output 11/16/17 11/17/17 19:00 07:00 Intake Total 1100 ml 360 ml Output Total 50 ml 200 ml Balance 1050 ml 160 ml Intake Oral 100 ml 360 ml IV Total 1000 ml Output Stool Total 200 ml Emesis 50 ml # Voids 5 2 # Bowel Movements 1 Laboratory Tests Test 11/17/17 07:05 White Blood Count 3.5 K/UL (4.8-10.8) L Red Blood Count 6.10 M/UL (4.70-6.10) Hemoglobin 17.5 G/DL (14.2-18.0) Hematocrit 53.5 % (42.0-52.0) H Mean Corpuscular Volume 88 FL (80-99) Mean Corpuscular Hemoglobin 28.7 PG (27.0-31.0) Mean Corpuscular Hemoglobin Concent 32.7 G/DL (32.0-36.0) Red Cell Distribution Width 12.0 % (11.6-14.8) Platelet Count 92 K/UL (150-450) L Mean Platelet Volume 10.3 FL (6.5-10.1) H Neutrophils (%) (Auto) % (45.0-75.0) Lymphocytes (%) (Auto) % (20.0-45.0) Monocytes (%) (Auto) % (1.0-10.0) Eosinophils (%) (Auto) % (0.0-3.0) Basophils (%) (Auto) % (0.0-2.0) Differential Total Cells Counted 100 Neutrophils % (Manual) 50 % (45-75) Lymphocytes % (Manual) 34 % (20-45) Monocytes % (Manual) 10 % (1-10) Eosinophils % (Manual) 1 % (0-3) Basophils % (Manual) 0 % (0-2) Band Neutrophils 5 % (0-8) Platelet Estimate Decreased L Platelet Morphology Normal Red Blood Cell Morphology Normal Sodium Level 137 MMOL/L (136-145) Potassium Level 3.8 MMOL/L (3.5-5.1) Chloride Level 101 MMOL/L (98-107) Carbon Dioxide Level 26 MMOL/L (21-32) Anion Gap 10 mmol/L (5-15) Blood Urea Nitrogen 9 mg/dL (7-18) Creatinine 1.2 MG/DL (0.55-1.30) Estimat Glomerular Filtration Rate > 60 mL/min (>60) Glucose Level 104 MG/DL (74-106) Calcium Level 8.9 MG/DL (8.5-10.1) Height (Feet): 5 Height (Inches): 10.00 Weight (Pounds): 220 General Appearance: WD/WN, no apparent distress, alert Cardiovascular: normal rate Respiratory/Chest: normal breath sounds, no respiratory distress Abdominal Exam: normal bowel sounds, non tender, soft Extremities: normal range of motion, non-tender Laith Crockett NP Nov 17, 2017 12:09
[2017-11-17 16:00] VITALS: BP 145/94
[2017-11-17] MEDS: cefTRIAXone 1 GM in D5W 55 ML IVPB SCH (17:47)
[2017-11-17] MEDS ORDERED: Albuterol ud Inhalation HHN PRN (18:15)
[2017-11-17] MEDS ORDERED: Ipratropium 0.02% Inh Soln 2.5ml UD HHN PRN (18:15)
[2017-11-17 20:00] VITALS: BP 142/74
[2017-11-17] MEDS ORDERED: Isovue-300 100ml vial INJ PRN (21:15)
[2017-11-18] VITALS: BP 137/79
--- NOTE | 2017-11-18 02:15 | Consultation ---
DATE OF CONSULTATION: 11/17/2017 INFECTIOUS DISEASE CONSULTATION CONSULTING PHYSICIAN: Moon Ko M.D. REFERRING PHYSICIAN: Marcelino Hernandez M.D. REASON FOR CONSULTATION: Pneumonia. HISTORY OF PRESENT ILLNESS: This is a 27-year-old gentleman with history of pancreatitis. He came in with abdominal pain along with nausea, vomiting, and diarrhea. He also has fever with cough with blood and shortness of breath. He was found to have a pneumonia and an Infectious Diseases consultation has been obtained for antibiotics. PAST MEDICAL HISTORY: History of pancreatitis. SOCIAL HISTORY: He smokes cigarettes. He denies alcohol or drug use. FAMILY HISTORY: Positive for skin cancer in his mother. REVIEW OF SYSTEMS: RESPIRATORY: He had fever and chills. He has cough with hemopytysis He has shortness of breath. No chest pain. CARDIAC: No chest pain. No palpitations. No dizziness. No syncope. GASTROINTESTINAL: He had nausea and vomiting. He complains of abdominal pain and diarrhea. MEDICATIONS: As an inpatient, he is on albuterol, Protonix, Levaquin, Reglan, [place], and Zofran. ALLERGIES: No known drug allergies. PHYSICAL EXAMINATION: VITAL SIGNS: Temperature of 98.6 degrees, T-max of 100.7 degrees, pulse is 72, respiratory rate 20, blood pressure 132/90, and O2 saturation of 98%. HEENT: Pupils are equally reactive to light and accommodation. Mouth appears clean without thrush. NECK: Supple. No adenopathy. No JVD. CARDIOVASCULAR: Regular rate and rhythm. No murmurs. LUNGS: Clear to auscultation bilaterally. No crackles. No wheezes. ABDOMEN: Soft and nontender. No organomegaly. EXTREMITIES: No cyanosis. No clubbing. No edema. LABORATORY AND DIAGNOSTIC DATA: White count 3.5, hemoglobin 17.5, hematocrit 53.5, MCV 88, platelet count of 92,000, and neutrophils of 34%. Sodium 137, potassium 3.8, chloride 101, bicarb 26, BUN 9, creatinine 1.2, glucose 104, calcium 8.9, and total bilirubin 0.4. AST 42, ALT 50, and alkaline phosphatase 73. . Troponin 0.002. Total protein 8.7. Albumin 4.3. Lipase of 119. UA showing 0-2 white cells. Abdominal x-ray showing prominent borderline dilated small bowel loops seen in the left mid abdomen, could represent ileus, enteritis, possible small bowel obstruction. CT abdomen and pelvis showing bilateral, left greater than right pulmonary parenchymal disease with reticulonodular changes and some ground-glass opacity, which is nonspecific. This could indicate atypical pneumonia versus noninfectious process. Fatty liver. ASSESSMENT: This is a 27-year-old gentleman with history of pancreatitis, who comes in with fever, cough, and shortness of breath along with nausea, vomiting, and diarrhea, and he was found to have possible: 1. Aspiration pneumonia. 2. He also could possibly have a gastroenteritis. PLAN: 1. Continue Levaquin for now. 2. We will order ceftriaxone. 3. We will order sputum for Gram stain and culture. 4. We will order serum Legionella antibody and mycoplasma serology. 5. will order sputum for AFB x 3 6. will order respiratory isolation 7. CT chest 8. We will follow up cultures and adjust antibiotics accordingly. I would like to thank Dr. Hernandez for this consultation. Moon Ko M.D. DR: BETTIE JOB#: [id number] CC: Marcelino Hernandez M.D.; Fax#: [phone] [facility]
[2017-11-18 04:00] VITALS: BP 129/81
[2017-11-18 07:35] LABS: HEMATOCRIT 53.8 % (42.0-52.0); HEMOGLOBIN 17.8 G/DL (14.2-18.0); MEAN CORPUSCULAR VOLUME 87 FL (80-99); PLATELET COUNT 97 K/UL (150-450); RED CELL DISTRIBUTION WIDTH 11.9 % (11.6-14.8)
[2017-11-18 07:36] LABS: ANION GAP 8 mmol/L (5-15); BLOOD UREA NITROGEN 9 mg/dL (7-18); CALCIUM 9.2 MG/DL (8.5-10.1); CARBON DIOXIDE 28 MMOL/L (21-32); CHLORIDE 102 MMOL/L (98-107); CREATININE 1.2 MG/DL (0.55-1.30); SODIUM 138 MMOL/L (136-145)
[2017-11-18 08:00] VITALS: BP 144/88
--- NOTE | 2017-11-18 09:54 | GI Progress Note ---
Assessment/Plan Problems: (1) Intractable abdominal pain ICD Codes: R10.9 - Unspecified abdominal pain SNOMED: 77636031, 294740726 (2) Cyclic vomiting syndrome ICD Codes: G43.A0 - Cyclical vomiting, not intractable SNOMED: 19270051 (3) Dehydration ICD Codes: E86.0 - Dehydration SNOMED: 10300506 (4) Persistent vomiting ICD Codes: R11.10 - Vomiting, unspecified SNOMED: 194775815, 241383510 Status: stable Status Narrative Discussed with Dr. Farley. Assessment/Plan utox positive for marijuana lipase normal CTAP negative airborne precautions r/o TB symptomatic treatment abx zofran prn, reglan for persistent vomiting GI cocktail prn IV/PO hydration + electrolyte correction regular diet, tolerating ppi fu labs The patient was seen and examined at bedside and all new and available data was reviewed in the patients chart. I agree with the above findings, impression and plan. (Patient seen earlier today. Signature stamp does not reflect patient encounter time.). - Mohan Farley MD Subjective Subjective abdominal pain less, states he has SOB and chest pain Objective Last 24 Hour Vital Signs Date Time Temp Pulse Resp B/P (MAP) Pulse Ox O2 Delivery O2 Flow Rate FiO2 11/18/17 08:00 98.1 64 20 144/88 (106) 100 98.1 11/18/17 07:44 60 20 100 Room Air 21 11/18/17 07:38 76 20 97 Room Air 21 11/18/17 07:37 76 20 Room Air 21 11/18/17 04:00 99.4 73 18 129/81 (97) 99 99.4 11/18/17 00:00 99.4 72 18 137/79 (98) 96 99.4 11/17/17 21:00 Room Air 11/17/17 20:00 99.8 79 18 142/74 (96) 100 99.8 11/17/17 20:00 84 18 Room Air 21 11/17/17 19:10 99.4 99.4 11/17/17 18:18 102.3 11/17/17 17:48 101.7 11/17/17 17:10 101.7 101.7 11/17/17 16:00 100.4 90 19 145/94 (111) 100 100.4 11/17/17 15:24 82 18 100 Room Air 21 11/17/17 15:18 84 16 100 Room Air 21 11/17/17 11:57 98.6 72 20 132/90 (104) 98 98.6 11/17/17 10:52 85 18 99 Room Air 21 11/17/17 10:45 81 16 Room Air 21 11/17/17 10:45 81 16 99 Room Air 21 Intake and Output 11/17/17 11/18/17 19:00 07:00 Intake Total 1135 ml Balance 1135 ml Intake Oral 460 ml IV Total 675 ml # Voids 3 2 # Bowel Movements 2 1 Laboratory Tests Test 11/18/17 06:47 White Blood Count 3.0 K/UL (4.8-10.8) L Red Blood Count 6.20 M/UL (4.70-6.10) H Hemoglobin 17.8 G/DL (14.2-18.0) Hematocrit 53.8 % (42.0-52.0) H Mean Corpuscular Volume 87 FL (80-99) Mean Corpuscular Hemoglobin 28.7 PG (27.0-31.0) Mean Corpuscular Hemoglobin Concent 33.1 G/DL (32.0-36.0) Red Cell Distribution Width 11.9 % (11.6-14.8) Platelet Count 97 K/UL (150-450) L Mean Platelet Volume 9.8 FL (6.5-10.1) Neutrophils (%) (Auto) % (45.0-75.0) Lymphocytes (%) (Auto) % (20.0-45.0) Monocytes (%) (Auto) % (1.0-10.0) Eosinophils (%) (Auto) % (0.0-3.0) Basophils (%) (Auto) % (0.0-2.0) Differential Total Cells Counted 100 Neutrophils % (Manual) 53 % (45-75) Lymphocytes % (Manual) 32 % (20-45) Monocytes % (Manual) 4 % (1-10) Eosinophils % (Manual) 1 % (0-3) Basophils % (Manual) 0 % (0-2) Band Neutrophils 10 % (0-8) H Platelet Estimate Decreased L Platelet Morphology Normal Red Blood Cell Morphology Normal Sodium Level 138 MMOL/L (136-145) Potassium Level 4.0 MMOL/L (3.5-5.1) Chloride Level 102 MMOL/L (98-107) Carbon Dioxide Level 28 MMOL/L (21-32) Anion Gap 8 mmol/L (5-15) Blood Urea Nitrogen 9 mg/dL (7-18) Creatinine 1.2 MG/DL (0.55-1.30) Estimat Glomerular Filtration Rate > 60 mL/min (>60) Glucose Level 109 MG/DL (74-106) H Calcium Level 9.2 MG/DL (8.5-10.1) Height (Feet): 5 Height (Inches): 10.00 Weight (Pounds): 220 General Appearance: WD/WN, no apparent distress, alert Cardiovascular: normal rate Respiratory/Chest: normal breath sounds, no respiratory distress Abdominal Exam: normal bowel sounds, non tender, soft Extremities: normal range of motion, non-tender Laith Crockett NP Nov 18, 2017 09:54
--- NOTE | 2017-11-18 10:22 | Diagnostic Imaging Report ---
Indication: Chest pain Technique: Continuous helical transaxial imaging of the chest was obtained from the thoracic inlet to the upper abdomen after intravenous nonionic contrast administration. Coronal 2-D reformats were also obtained. Automatic Exposure Control was utilized. Total Dose length Product (DLP): 1032.[address] Dose Index Volume (CTDIvol): 23.44 mGy Comparison: 08/11/2017 CT abdomen pelvis Findings: There are the patchy somewhat clustered appearing reticular nodular densities within the right upper lobe in the perihilar region. Minimal basilar disease as well to a lesser extent in the lower lobes noted. The findings probably inflammatory/infectious. Please correlate clinically. Follow-up is recommended. There is no adenopathy. Small hiatal hernia noted. There is some breathing motion present. Visualized upper abdomen is unremarkable. IMPRESSION: Patchy parenchymal disease with the prominent nodular component most likely infectious/inflammatory in nature predominating in the right upper lobe with some involvement of the lower lobes bilaterally. Please correlate clinically. Follow-up is recommended. The CT scanner at [facility] is accredited by the [employer] and the scans are performed using dose optimization techniques as appropriate to a performed exam including Automatic Exposure control.
[2017-11-18 12:00] VITALS: BP 138/84
[2017-11-18] MEDS ORDERED: PPD Tuberculin Skin Test 5TU IDERMAL ONE (13:00)
--- NOTE | 2017-11-18 14:37 | Infectious Diseases Prog Note ---
Assessment/Plan Assessment/Plan A; Pneumonia Leukopenia Thrombocytopenia Fatty liver Alopecia areata P Continue Rocephin will f/u cultures PPD, serologic tests Subjective ROS Limited/Unobtainable: No Constitutional: Reports: other - afebrile today Respiratory: Reports: productive cough Gastrointestinal/Abdominal: Reports: no symptoms Genitourinary: Reports: no symptoms Allergies: Coded Allergies: No Known Allergies (Unverified , 11/15/17) Objective Vital Signs Last 24 Hour Vital Signs Date Time Temp Pulse Resp B/P (MAP) Pulse Ox O2 Delivery O2 Flow Rate FiO2 11/18/17 13:02 Room Air 21 11/18/17 13:00 Room Air 21 11/18/17 12:00 98.4 73 20 138/84 (102) 100 98.4 11/18/17 09:00 Room Air 11/18/17 08:00 98.1 64 20 144/88 (106) 100 98.1 11/18/17 07:44 60 20 100 Room Air 11/18/17 07:38 76 20 97 Room Air 21 11/18/17 07:37 76 20 Room Air 21 11/18/17 04:00 99.4 73 18 129/81 (97) 99 99.4 11/18/17 00:00 99.4 72 18 137/79 (98) 96 99.4 11/17/17 21:00 Room Air 11/17/17 20:00 99.8 79 18 142/74 (96) 100 99.8 11/17/17 20:00 84 18 Room Air 11/17/17 19:10 99.4 99.4 11/17/17 18:18 102.3 11/17/17 17:48 101.7 11/17/17 17:10 101.7 101.7 11/17/17 16:00 100.4 90 19 145/94 (111) 100 100.4 11/17/17 15:24 82 18 100 Room Air 21 11/17/17 15:18 84 16 100 Room Air 21 Height (Feet): 5 Height (Inches): 10.00 Weight (Pounds): 220 General Appearance: no acute distress HEENT: other - localized area of hair loss Respiratory/Chest: lungs clear Cardiovascular: normal rate Abdomen: soft, non tender Extremities: no edema Neurologic/Psychiatric: alert, oriented x 3, responsive Microbiology Date/Time Source Procedure Growth Status 11/17/17 17:10 Sputum Gram Stain - Final Resulted 11/17/17 17:10 Sputum Sputum Culture Pending Resulted Laboratory Tests Test 11/18/17 06:47 11/18/17 12:28 White Blood Count 3.0 K/UL (4.8-10.8) L Red Blood Count 6.20 M/UL (4.70-6.10) H Hemoglobin 17.8 G/DL (14.2-18.0) Hematocrit 53.8 % (42.0-52.0) H Mean Corpuscular Volume 87 FL (80-99) Mean Corpuscular Hemoglobin 28.7 PG (27.0-31.0) Mean Corpuscular Hemoglobin Concent 33.1 G/DL (32.0-36.0) Red Cell Distribution Width 11.9 % (11.6-14.8) Platelet Count 97 K/UL (150-450) L Mean Platelet Volume 9.8 FL (6.5-10.1) Neutrophils (%) (Auto) % (45.0-75.0) Lymphocytes (%) (Auto) % (20.0-45.0) Monocytes (%) (Auto) % (1.0-10.0) Eosinophils (%) (Auto) % (0.0-3.0) Basophils (%) (Auto) % (0.0-2.0) Differential Total Cells Counted 100 Neutrophils % (Manual) 53 % (45-75) Lymphocytes % (Manual) 32 % (20-45) Monocytes % (Manual) 4 % (1-10) Eosinophils % (Manual) 1 % (0-3) Basophils % (Manual) 0 % (0-2) Band Neutrophils 10 % (0-8) H Platelet Estimate Decreased L Platelet Morphology Normal Red Blood Cell Morphology Normal Sodium Level 138 MMOL/L (136-145) Potassium Level 4.0 MMOL/L (3.5-5.1) Chloride Level 102 MMOL/L (98-107) Carbon Dioxide Level 28 MMOL/L (21-32) Anion Gap 8 mmol/L (5-15) Blood Urea Nitrogen 9 mg/dL (7-18) Creatinine 1.2 MG/DL (0.55-1.30) Estimat Glomerular Filtration Rate > 60 mL/min (>60) Glucose Level 109 MG/DL (74-106) H Calcium Level 9.2 MG/DL (8.5-10.1) HIV (1&2) Antibody Rapid Negative (NEGATIVE) TB Test (T-Spot) Pending TB Test Nil Control (T-Spot) Pending TB Test Panel A (T-Spot) Pending TB Test Panel B (T-Spot) Pending TB Test Positive Control (T-Spot) Pending Current Medications Medications (Trade) Dose Ordered Sig/Elvin Route PRN Reason Start Time Stop Time Status Last Admin Dose Admin Acetaminophen (Tylenol) 650 mg Q6H PRN ORAL Mild Pain/Temp > 100.5 11/17/17 17:45 12/17/17 17:44 11/17/17 17:48 Acetaminophen/ Hydrocodone Bitart ([place] 5/325) 1 tab Q6H PRN ORAL Severe Pain (Pain Scale 7-10) 11/15/17 23:15 11/22/17 23:14 11/16/17 19:04 Albuterol Sulfate (Proventil) 2.5 mg Q6H PRN HHN Shortness of Breath 11/17/17 18:15 11/22/17 18:14 11/18/17 07:37 Albuterol Sulfate (Proventil) 2.5 mg Q6HRT HHN 11/18/17 19:00 11/23/17 18:59 Ceftriaxone Sodium 1 gm/ Dextrose 55 ml @ 110 mls/hr Q24H IVPB 11/17/17 17:00 11/24/17 16:59 11/17/17 17:47 Dextrose/ Electrolytes 1,000 ml @ 75 mls/hr [id number] IV 11/15/17 23:45 12/15/17 23:44 11/18/17 05:28 Iopamidol (Isovue-300 100ml) 100 ml NOW PRN INJ Radiology Procedure 11/17/17 21:15 11/19/17 21:09 Ipratropium [place] (Atrovent) 500 mcg Q6H PRN HHN Shortness of Breath 11/17/17 18:15 11/22/17 18:14 11/18/17 07:37 Ipratropium [place] (Atrovent) 500 mcg Q6HRT HHN 11/18/17 19:00 11/23/17 18:59 Metoclopramide HCl (Reglan) 5 mg Q6H PRN ORAL Nausea & Vomiting 11/16/17 14:30 12/16/17 14:29 11/16/17 18:11 Ondansetron HCl (Zofran) 4 mg Q6H PRN IVP Nausea & Vomiting 11/15/17 23:15 12/15/17 23:14 11/16/17 18:02 Pantoprazole (Protonix) 40 mg DAILY ORAL 11/17/17 09:00 12/17/17 08:59 11/18/17 09:06 Tramaine Clemente MD Nov 18, 2017 14:37
--- NOTE | 2017-11-18 15:14 | Pulmonology Progress Note ---
Assessment/Plan Assessment/Plan IMPRESSION: 1. Marijuana use. 2. Abdominal pain. 3. Elevated CK. 4. Neutropenia. 5. Thrombocytopenia. 6. Borderline elevated renal function. 7. Probable pneumonia DISCUSSION: Continue IV fluids. Seen by Gastroenterology. Provide pain medication with [place], antiemetics with Zofran. On SCDs. seen by ID. Reviewed Chest CT. Has nodular pneumonia suspect right middle and right upper lobe Agree with isolation. Consider bronchoscopy if patient is not transferred to a contracted hospital Subjective Interval Events: states he is feeling better; Remains febrile Constitutional: Reports: no symptoms HEENT: Repors: no symptoms Respiratory: Reports: no symptoms Cardiovascular: Reports: no symptoms Gastrointestinal/Abdominal: Reports: no symptoms Genitourinary: Reports: no symptoms Allergies: Coded Allergies: No Known Allergies (Unverified , 11/15/17) Objective Last 24 Hour Vital Signs Date Time Temp Pulse Resp B/P (MAP) Pulse Ox O2 Delivery O2 Flow Rate FiO2 11/18/17 13:02 Room Air 21 11/18/17 13:00 Room Air 11/18/17 12:00 98.4 73 20 138/84 (102) 100 98.4 11/18/17 09:00 Room Air 11/18/17 08:00 98.1 64 20 144/88 (106) 100 98.1 11/18/17 07:44 60 20 100 Room Air 11/18/17 07:38 76 20 97 Room Air 11/18/17 07:37 76 20 Room Air 11/18/17 04:00 99.4 73 18 129/81 (97) 99 99.4 11/18/17 00:00 99.4 72 18 137/79 (98) 96 99.4 11/17/17 21:00 Room Air 11/17/17 20:00 99.8 79 18 142/74 (96) 100 99.8 11/17/17 20:00 84 18 Room Air 11/17/17 19:10 99.4 99.4 11/17/17 18:18 102.3 11/17/17 17:48 101.7 11/17/17 17:10 101.7 101.7 11/17/17 16:00 100.4 90 19 145/94 (111) 100 100.4 11/17/17 15:24 82 18 100 Room Air 21 11/17/17 15:18 84 16 100 Room Air 21 Intake and Output 11/17/17 11/18/17 19:00 07:00 Intake Total 1135 ml 75 ml Balance 1135 ml 75 ml Intake Oral 460 ml IV Total 675 ml 75 ml # Voids 3 2 # Bowel Movements 2 1 General Appearance: no acute distress HEENT: normocephalic Respiratory/Chest: chest wall non-tender, lungs clear Cardiovascular: normal peripheral pulses, normal rate Abdomen: normal bowel sounds Microbiology Date/Time Source Procedure Growth Status 11/17/17 17:10 Sputum Gram Stain - Final Resulted 11/17/17 17:10 Sputum Sputum Culture Pending Resulted 11/17/17 15:00 Stool Clostridium difficile Toxin Assay - Final Complete Laboratory Tests 11/18/17 06:47: White Blood Count 3.0L, Red Blood Count 6.20H, Hemoglobin 17.8, Hematocrit 53.8H , Mean Corpuscular Volume 87, Mean Corpuscular Hemoglobin 28.7, Mean Corpuscular Hemoglobin Concent 33.1, Red Cell Distribution Width 11.9, Platelet Count 97L, Mean Platelet Volume 9.8, Neutrophils (%) (Auto) , Lymphocytes (%) ( Auto) , Monocytes (%) (Auto) , Eosinophils (%) (Auto) , Basophils (%) (Auto) , Differential Total Cells Counted 100, Neutrophils % (Manual) 53, Lymphocytes % ( Manual) 32, Monocytes % (Manual) 4, Eosinophils % (Manual) 1, Basophils % ( Manual) 0, Band Neutrophils 10H, Platelet Estimate DecreasedL, Platelet Morphology Normal, Red Blood Cell Morphology Normal, Sodium Level 138, Potassium Level 4.0, Chloride Level 102, Carbon Dioxide Level 28, Anion Gap 8, Blood Urea Nitrogen 9, Creatinine 1.2, Estimat Glomerular Filtration Rate > 60, Glucose Level 109H, Calcium Level 9.2, HIV (1&2) Antibody Rapid Negative 11/18/17 12:28: TB Test (T-Spot) [Pending], TB Test Nil Control (T-Spot) [Pending], TB Test Panel A (T-Spot) [Pending], TB Test Panel B (T-Spot) [Pending], TB Test Positive Control (T-Spot) [Pending] Current Medications Medications (Trade) Dose Ordered Sig/Elvin Route PRN Reason Start Time Stop Time Status Last Admin Dose Admin Acetaminophen (Tylenol) 650 mg Q6H PRN ORAL Mild Pain/Temp > 100.5 11/17/17 17:45 12/17/17 17:44 11/17/17 17:48 Acetaminophen/ Hydrocodone Bitart ([place] 5/325) 1 tab Q6H PRN ORAL Severe Pain (Pain Scale 7-10) 11/15/17 23:15 11/22/17 23:14 11/16/17 19:04 Albuterol Sulfate (Proventil) 2.5 mg Q6H PRN HHN Shortness of Breath 11/17/17 18:15 11/22/17 18:14 11/18/17 07:37 Albuterol Sulfate (Proventil) 2.5 mg Q6HRT HHN 11/18/17 19:00 11/23/17 18:59 Ceftriaxone Sodium 1 gm/ Dextrose 55 ml @ 110 mls/hr Q24H IVPB 11/17/17 17:00 11/24/17 16:59 11/17/17 17:47 Dextrose/ Electrolytes 1,000 ml @ 75 mls/hr [id number] IV 11/15/17 23:45 12/15/17 23:44 11/18/17 05:28 Iopamidol (Isovue-300 100ml) 100 ml NOW PRN INJ Radiology Procedure 11/17/17 21:15 11/19/17 21:09 Ipratropium [place] (Atrovent) 500 mcg Q6H PRN HHN Shortness of Breath 11/17/17 18:15 11/22/17 18:14 11/18/17 07:37 Ipratropium [place] (Atrovent) 500 mcg Q6HRT HHN 11/18/17 19:00 11/23/17 18:59 Metoclopramide HCl (Reglan) 5 mg Q6H PRN ORAL Nausea & Vomiting 11/16/17 14:30 12/16/17 14:29 11/16/17 18:11 Ondansetron HCl (Zofran) 4 mg Q6H PRN IVP Nausea & Vomiting 11/15/17 23:15 12/15/17 23:14 11/16/17 18:02 Pantoprazole (Protonix) 40 mg DAILY ORAL 9/26/18 09:00 12/17/17 08:59 11/18/17 09:06 Marcelino Hernandez MD Nov 18, 2017 15:14
[2017-11-18 16:00] VITALS: BP 123/76
[2017-11-18] MEDS: cefTRIAXone 1 GM in D5W 55 ML IVPB SCH (16:51)
[2017-11-18] MEDS: Albuterol ud Inhalation HHN SCH (19:36)
[2017-11-18] MEDS: Ipratropium 0.02% Inh Soln 2.5ml UD HHN SCH (19:36)
[2017-11-18 20:00] VITALS: BP 134/98
[2017-11-19] VITALS: BP 137/96
[2017-11-19] MEDS: Albuterol ud Inhalation HHN SCH ×3 (01:00→13:05)
[2017-11-19] MEDS: Ipratropium 0.02% Inh Soln 2.5ml UD HHN SCH ×3 (01:00→13:05)
[2017-11-19 04:00] VITALS: BP 112/73
[2017-11-19 06:42] LABS: MEAN CORPUSCULAR VOLUME 87 FL (80-99); PLATELET COUNT 97 K/UL (150-450); RED BLOOD COUNT 6.45 M/UL (4.70-6.10); WHITE BLOOD COUNT 4.3 K/UL (4.8-10.8)
[2017-11-19 06:47] LABS: ANION GAP 7 mmol/L (5-15); BLOOD UREA NITROGEN 9 mg/dL (7-18); CALCIUM 9.2 MG/DL (8.5-10.1); CARBON DIOXIDE 28 MMOL/L (21-32); CHLORIDE 103 MMOL/L (98-107); CREATININE 1.2 MG/DL (0.55-1.30); POTASSIUM 4.3 MMOL/L (3.5-5.1); SODIUM 138 MMOL/L (136-145)
[2017-11-19 06:58] LABS: HEMOGLOBIN 18.8 G/DL (14.2-18.0)
[2017-11-19 08:00] VITALS: BP 125/73
--- NOTE | 2017-11-19 08:52 | Pulmonology Progress Note ---
Assessment/Plan Assessment/Plan IMPRESSION: 1. Marijuana use. 2. Abdominal pain. 3. Elevated CK. 4. Neutropenia. 5. Thrombocytopenia. 6. Borderline elevated renal function. 7. Probable pneumonia DISCUSSION: Continue IV fluids. Seen by Gastroenterology. Provide pain medication with [place], antiemetics with Zofran. On SCDs. seen by ID. Reviewed Chest CT. Has nodular pneumonia suspect right middle and right upper lobe Agree with isolation. Consider bronchoscopy if patient is not transferred to a contracted hospital Subjective Interval Events: States he is better Constitutional: Reports: no symptoms HEENT: Repors: no symptoms Respiratory: Reports: no symptoms Cardiovascular: Reports: no symptoms Allergies: Coded Allergies: No Known Allergies (Unverified , 11/15/17) Objective Last 24 Hour Vital Signs Date Time Temp Pulse Resp B/P (MAP) Pulse Ox O2 Delivery O2 Flow Rate FiO2 11/19/17 08:48 Room Air 11/19/17 08:05 58 18 97 Room Air 21 11/19/17 08:00 97.8 86 20 125/73 (90) 99 97.8 11/19/17 04:00 97.5 71 17 112/73 (86) 99 97.5 11/19/17 01:17 Room Air 11/19/17 01:17 Room Air 11/19/17 00:00 97.4 62 17 137/96 (110) 96 97.4 11/18/17 21:00 Room Air 11/18/17 20:00 98.0 62 19 134/98 (110) 95 98.0 11/18/17 19:46 61 20 99 Room Air 11/18/17 19:36 74 20 97 Room Air 11/18/17 17:00 99.2 99.2 11/18/17 16:00 98.4 80 20 123/76 (92) 99 98.4 11/18/17 13:02 Room Air 21 11/18/17 13:00 Room Air 21 11/18/17 12:00 98.4 73 20 138/84 (102) 100 98.4 11/18/17 09:00 Room Air Intake and Output 11/18/17 11/19/17 19:00 07:00 Intake Total 1365 ml 900 ml Balance 1365 ml 900 ml Intake Oral 840 ml IV Total 525 ml 900 ml # Voids 3 5 # Bowel Movements 1 General Appearance: no acute distress HEENT: normocephalic Respiratory/Chest: chest wall non-tender, lungs clear Cardiovascular: normal peripheral pulses, normal rate Abdomen: normal bowel sounds Microbiology Date/Time Source Procedure Growth Status 11/17/17 17:10 Sputum Gram Stain - Final Resulted 11/17/17 17:10 Sputum Sputum Culture - Preliminary NORMAL UPPER RESPIRATORY GRZEGORZ AT 24 ... Resulted 11/17/17 15:00 Stool Clostridium difficile Toxin Assay - Final Complete Laboratory Tests 11/18/17 12:28: TB Test (T-Spot) [Pending], TB Test Nil Control (T-Spot) [Pending], TB Test Panel A (T-Spot) [Pending], TB Test Panel B (T-Spot) [Pending], TB Test Positive Control (T-Spot) [Pending] 11/18/17 21:00: M. tuberculosis Complex DNA (PCR) [Pending] 11/19/17 05:55: White Blood Count 4.3L, Red Blood Count 6.45H, Hemoglobin 18.8*H, Hematocrit 56.0H, Mean Corpuscular Volume 87, Mean Corpuscular Hemoglobin 29.2, Mean Corpuscular Hemoglobin Concent 33.6, Red Cell Distribution Width 12.0, Platelet Count 97L, Mean Platelet Volume 10.9H, Neutrophils (%) (Auto) , Lymphocytes (%) (Auto) , Monocytes (%) (Auto) , Eosinophils (%) (Auto) , Basophils (%) (Auto) , Neutrophils % (Manual) [Pending], Lymphocytes % (Manual) [Pending], Platelet Estimate [Pending], Platelet Morphology [Pending], Sodium Level 138, Potassium Level 4.3, Chloride Level 103, Carbon Dioxide Level 28, Anion Gap 7, Blood Urea Nitrogen 9, Creatinine 1.2, Estimat Glomerular Filtration Rate > 60, Glucose Level 106, Calcium Level 9.2 Current Medications Medications (Trade) Dose Ordered Sig/Elvin Route PRN Reason Start Time Stop Time Status Last Admin Dose Admin Acetaminophen (Tylenol) 650 mg Q6H PRN ORAL Mild Pain/Temp > 100.5 11/17/17 17:45 12/17/17 17:44 11/17/17 17:48 Acetaminophen/ Hydrocodone Bitart ([place] 5/325) 1 tab Q6H PRN ORAL Severe Pain (Pain Scale 7-10) 11/15/17 23:15 11/22/17 23:14 11/16/17 19:04 Albuterol Sulfate (Proventil) 2.5 mg Q6H PRN HHN Shortness of Breath 11/17/17 18:15 11/22/17 18:14 11/18/17 07:37 Albuterol Sulfate (Proventil) 2.5 mg Q6HRT HHN 11/18/17 19:00 11/23/17 18:59 11/19/17 08:05 Ceftriaxone Sodium 1 gm/ Dextrose 55 ml @ 110 mls/hr Q24H IVPB 11/17/17 17:00 11/24/17 16:59 11/18/17 16:51 Dextrose/ Electrolytes 1,000 ml @ 75 mls/hr [id number] IV 11/15/17 23:45 12/15/17 23:44 11/19/17 08:16 Iopamidol (Isovue-300 100ml) 100 ml NOW PRN INJ Radiology Procedure 11/17/17 21:15 11/19/17 21:09 Ipratropium [place] (Atrovent) 500 mcg Q6H PRN HHN Shortness of Breath 11/17/17 18:15 11/22/17 18:14 11/18/17 07:37 Ipratropium [place] (Atrovent) 500 mcg Q6HRT HHN 11/18/17 19:00 11/23/17 18:59 11/19/17 08:05 Metoclopramide HCl (Reglan) 5 mg Q6H PRN ORAL Nausea & Vomiting 11/16/17 14:30 12/16/17 14:29 11/16/17 18:11 Ondansetron HCl (Zofran) 4 mg Q6H PRN IVP Nausea & Vomiting 11/15/17 23:15 12/15/17 23:14 11/16/17 18:02 Pantoprazole (Protonix) 40 mg DAILY ORAL 11/17/17 09:00 12/17/17 08:59 11/19/17 08:16 Marcelino Hernandez MD Nov 19, 2017 08:52
[2017-11-19 12:00] VITALS: BP 143/92
[2017-11-19 16:00] VITALS: BP 143/99
[2017-11-19] MEDS ORDERED: TYLENOL325 MG ORAL (16:44)
[2017-11-19] MEDS ORDERED: ALBUTEROL2.5 MG/3 M INH ×2 (16:44→16:46)
[2017-11-19] MEDS ORDERED: NORCO 5-325 TA1 EACH ORAL (16:48)
[2017-11-19] MEDS ORDERED: ROCEPHIN 11 GM/50 ML IVPB (16:48)
[2017-11-19] MEDS ORDERED: IPRATROPIU0.2 MG/1 M HHN (16:50)
[2017-11-19] MEDS ORDERED: METOCLOPRAMIDE H5 M1 ORAL (16:50)
[2017-11-19] MEDS ORDERED: PROTONIX40 MG ORAL (16:51)
[2017-11-19] MEDS ORDERED: ZOFRAN 4 MG4 MG/2 ML IV (16:51)
[2017-11-19] MEDS: cefTRIAXone 1 GM in D5W 55 ML IVPB SCH (17:37)
--- NOTE | 2017-11-22 13:22 | Discharge Summary ---
Discharge Summary Discharge Summary _ DATE OF ADMISSION: 11/15/2017 DATE OF DISCHARGE: 11/19/2017 REASON FOR ADMISSION: 27 years old male with past medical history of pancreatitis and asthma , presented to emergency department with complain of abdominal pain. Patient reported history of pancreatitis several years ago, no known etiology. Patient reported abdominal pain with brief episodes of nausea , emesis and watery diarrhea , which resolved. No blood in emesis or stool. Vital signs reveal fever 101. Pulse oximetry was stable on room air. Laboratory workup revealed leukopenia with WBC 4, platelet count 95. BUN 12, creatinine 1.4. CK 949. Troponin negative. Urine toxicology screen positive for marijuana . Serum alcohol level negative . Urinalysis with no evidence of UTI. CT of the abdomen revealed no acute intraabdominal pathology. Fatty liver. Bilateral left greater than right pulmonary parenchymal disease, with reticular and nodular changes and some groundglass opacities. Patient admitted with diagnoses of dehydration, persistent vomiting, intractable abdominal pain and renal insufficiency. CONSULTANTS: ID specialist Dr. Ko GI specialist Dr. Farley [facility] COURSE: Patient admitted and started on IV fluids. GI and ID consults were requested. CT of the chest revealed patchy parenchymal disease with the prominent nodular component most likely infectious/inflammatory in nature predominating in the right upper lobe with some involvement of the lower lobes bilaterally. Findings were consistent with nodular pneumonia, suspect right middle and right upper lobe. Patient placed in TB isolation. Sputum smear for AFB 3 was negative. T-spot was negative. HIV test was negative. Mycoplasma pneumonia IgG titer elevated 381. Mycoplasma TB by PCR still pending. Sputum culture was negative . St ool for C. difficile was negative. Supplemental oxygen provided as needed to keep pulse oximetry above 92%. Pulmonary toilet provided as needed . Patient started on empiric antibiotic for presumed pneumonia,likely atypical. ID specialist closely followed . Bronchoscopy was considered if unable to transfer to contracted facility. Renal parameters and electrolytes were closely monitored. Electrolytes corrected as needed. Nephrotoxins were avoided. Prior to transfer , acute kidney injury resolved . BUN and creatinine down to normal. GI closely followed. Pain management was addressed, and pain was controlled. Supportive care provided . Antiemetics provided as needed. . GI cocktail was on board as needed. Lipase within normal limits. GI prophylaxis provided. Patient slowly started on diet and advanced as tolerated . Patient was able to tolerate diet. Bed was secured at [facility] as per patient's insurance . Patient was stable for transfer FINAL DIAGNOSES: Acute kidney injury- resolved Pneumonia Intractable abdominal pain with vomiting, probably related to cyclic vomiting syndrome Cyclic vomiting syndrome likely due to marijuana use Dehydration Marijuana use Thrombocytopenia Leukopenia Fatty liver Alopecia areata DISCHARGE MEDICATIONS: See Medication Reconciliation list. DISCHARGE INSTRUCTIONS: Patient was transferred to [facility] as per patient's insurance. Follow-up with medical care provider at the facility I have been assigned to dictate discharge summary for this account. I was not involved in the patient's management. Rasheeda Melgar NP Nov 22, 2017 13:22
== END 2017-11-19 19:10 | DRG 391 ==
LOC: EMR 19:55 → 3E 19:57 → EDBEDREQ 20:32 → 3E 11-17 22:12
DX: K31.89 Other diseases of stomach and duodenum (principal); J18.9 Pneumonia, unspecified organism; N17.9 Acute kidney failure, unspecified; R10.9 Unspecified abdominal pain; R11.2 Nausea with vomiting, unspecified; F12.988 Cannabis use, unspecified with other cannabis-induced disorder; E86.0 Dehydration; D69.6 Thrombocytopenia, unspecified; K76.0 Fatty (change of) liver, not elsewhere classified; L63.9 Alopecia areata, unspecified; F17.200 Nicotine dependence, unspecified, uncomplicated
CPT/HCPCS: 36415; 71260; 74018; 74177; 80048; 80053; 80307; 80329; 81003; 82550; 83690; 84484; 85007; 85025; 85610; 85730; 86580; 86703; 86713; 86738; 87070; 87116; 87205; 87324; 87556; 93005; 94640; 94644; 94664; 96361; 96374; 96375; 96376; 99285; J2405

== ENCOUNTER → 2018-10-18 | Emergency (ER) | payer OTHER ==
[~2018-10-18] VITALS: Ht 175.3 cm; Wt 104.3 kg
[~2018-10-18] MED LIST changes: +ALBUTEROL2.5 MG/3 M INH; +BENADRYL25 MG ORAL; +IPRATROPIU0.2 MG/1 M HHN; +METOCLOPRAMIDE H5 M1 ORAL; +PREDNISONE20 MG ORAL; +PROTONIX40 MG ORAL; +ROCEPHIN 11 GM/50 ML IVPB; +ZOFRAN 4 MG4 MG/2 ML IV
[2018-10-18 19:05] VITALS: BP 142/86
--- NOTE | 2018-10-18 20:00 | NUR ---
ED Nurse Note: PT WAS CALLED INTO BE SEEN AND WAS NOT PRESENT AT WAITING ROOM
== END | disposition left against medical advice (07) ==
LOC: EMR 19:39
DX: Z53.21 Procedure and treatment not carried out due to patient leaving prior to being seen by health care provider (principal)

== ENCOUNTER 2018-10-20 22:49 | Emergency (ER) | payer OTHER ==
[~2018-10-20] VITALS: Ht 175.3 cm; Wt 104.3 kg
[~2018-10-20 22:49] MED LIST changes: -BENADRYL25 MG ORAL; -PREDNISONE20 MG ORAL
--- NOTE | 2018-10-20 23:07 | NUR ---
ED Nurse Note: Patient presents with complaints of rash on bilateral arms, back and neck.
[2018-10-20 23:09] VITALS: BP 109/58
--- NOTE | 2018-10-20 23:24 | Emergency Room Report ---
History of Present Illness General Chief Complaint: Skin Rash/Abscess Source: Patient Present Illness HPI Is a 28-year-old male with no past medical history he presents with complaint of rash and itching. Onset for last 2 days. Started on his chest and back. No new medication. No new detergent or lotion. Itchy in nature. Has not taken anything for this. No fever chills. Worse with scratching. Allergies: Coded Allergies: No Known Allergies (Unverified , 11/15/17) Patient History Past Medical History: see triage record, old chart reviewed Past Surgical History: none Pertinent Family History: none Social History: Denies: smoking Immunizations: other Reviewed Nursing Documentation: PMH: Agreed; PSxH: Agreed Nursing Documentation-PMH Past Medical History: No Stated History Hx Hypertension: Yes Hx Asthma: Yes Hx COPD: No - bronchitis Review of Systems Eye: Denies: eye pain, blurred vision ENT: Denies: ear pain, nose congestion, throat swelling Respiratory: Denies: cough, shortness of breath Cardiovascular: Denies: chest pain, palpitations Gastrointestinal: Denies: abdominal pain, diarrhea, nausea, vomiting Musculoskeletal: Denies: back pain, joint pain Skin: Reports: rash Neurological: Denies: headache, numbness Endocrine: Denies: increased thirst, increased urine Hematologic/Lymphatic: Denies: easy bruising All Other Systems: negative except mentioned in HPI Physical Exam Vital Signs Date Time Temp Pulse Resp B/P (MAP) Pulse Ox O2 Delivery O2 Flow Rate FiO2 10/20/18 23:01 98.1 81 18 109/58 (75) 95 Room Air Vitals normal Sp02 EP Interpretation: reviewed, normal General Appearance: well appearing, no apparent distress, alert Head: normocephalic, atraumatic Eyes: bilateral eye PERRL, bilateral eye EOMI ENT: hearing grossly normal, normal pharynx Neck: full range of motion, supple, no meningismus Respiratory: chest non-tender, lungs clear, normal breath sounds Cardiovascular #1: regular rate, rhythm, no murmur Gastrointestinal: normal bowel sounds, non tender, no mass, no organomegaly, no bruit, non-distended Musculoskeletal: back normal, gait/station normal, normal range of motion Neurologic: alert, oriented x3 Psychiatric: mood/affect normal Skin: other - He has a pimply rash on his mid chest area. On his back there is diffuse erythema and urticaria. Medical Decision Making Diagnostic Impression: Primary Impression: Allergic reaction Qualified Codes: T78.40XA - Allergy, unspecified, initial encounter ER Course Patient with allergic reaction to unknown etiology. No evidence of any abscess or necrotizing fasciitis. Will discharge home. Last Vital Signs Date Time Temp Pulse Resp B/P (MAP) Pulse Ox O2 Delivery O2 Flow Rate FiO2 10/20/18 23:09 98.1 86 18 109/58 95 Room Air Status: improved Disposition: HOME, SELF-CARE Condition: Stable Scripts Diphenhydramine Hcl* (BENADRYL*) 25 Mg Capsule 50 MG ORAL Q6H PRN for Itching, #30 CAP Prov: Jairo Crockett MD 10/20/18 Prednisone* (PREDNISONE*) 20 Mg Tablet 40 MG ORAL DAILY, #8 TAB Prov: Jairo Crockett MD 10/20/18 Additional Instructions: Follow-up with your doctor in 3 to 5 days for recheck. Return if worse. Jairo Crockett MD Oct 20, 2018 23:24
[2018-10-20] MEDS ORDERED: BENADRYL25 MG ORAL (23:29)
[2018-10-20] MEDS ORDERED: PREDNISONE20 MG ORAL (23:29)
--- NOTE | 2018-10-20 23:33 | NUR ---
ED Nurse Note: Patient cleared for discharge, tolerated medication well. verblized understanding of instructions and departed with all belongings.
[2018-10-20 23:35] VITALS: BP 109/58
== END 2018-10-20 23:36 | disposition home or self-care (01) ==
LOC: EMR 23:13
DX: T78.40XA Allergy, unspecified, initial encounter (principal); X58.XXXA Exposure to other specified factors, initial encounter; I10 Essential (primary) hypertension; J45.909 Unspecified asthma, uncomplicated
CPT/HCPCS: 99282

== ENCOUNTER 2018-11-09 19:33 | Emergency (ER) | payer OTHER ==
[~2018-11-09] VITALS: Ht 175.3 cm; Wt 104.3 kg
[~2018-11-09 19:33] MED LIST changes: +BENADRYL25 MG ORAL; +PREDNISONE20 MG ORAL
[2018-11-09 19:36] VITALS: BP 126/86
--- NOTE | 2018-11-09 19:36 | NUR ---
ED Nurse Note: Walk-in patient with complaints of back pain since yesterday around 2310. Patient is ambulatory with steady gait but hesitant to sit down. Will continue to monitor.
--- NOTE | 2018-11-09 20:16 | NUR ---
ED Nurse Note: Patient taken down for Xray.
--- NOTE | 2018-11-09 20:26 | NUR ---
ED Nurse Note: Patient returned from Xray.
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
[2018-11-09] MEDS ORDERED: ROBAXIN-500MG ORAL (20:44)
[2018-11-09] MEDS ORDERED: IBU800 MG PO (20:44)
--- NOTE | 2018-11-09 20:57 | NUR ---
ED Nurse Note: Patient cleared for discharge by ER provider. Patient is A&oX4, ambulatory with steady gait. PAtient verbalized understanding of discharge instructions and departed with all belongings. Patient rendered pain medication prior to departure per request.
[2018-11-09 21:07] VITALS: BP 126/86
--- NOTE | 2018-11-10 11:17 | Diagnostic Imaging Report ---
Indication: Back pain Comparison: None Findings: 3 views of the lumbar spine were obtained. No acute fracture or malalignment is identified. Vertebral body heights and disk spaces are well maintained. Posterior elements are unremarkable. Impression: No acute findings.
== END 2018-11-09 21:08 | disposition home or self-care (01) ==
LOC: EMR 20:03
DX: S39.012A Strain of muscle, fascia and tendon of lower back, initial encounter (principal); I10 Essential (primary) hypertension; J45.909 Unspecified asthma, uncomplicated; V43.52XA Car driver injured in collision with other type car in traffic accident, initial encounter; Y92.410 Unspecified street and highway as the place of occurrence of the external cause
CPT/HCPCS: 72020; 99283

== ENCOUNTER 2018-11-29 19:35 | Emergency (ER) | payer OTHER ==
[~2018-11-29] VITALS: Ht 175.3 cm; Wt 104.3 kg
[~2018-11-29 19:35] MED LIST changes: +IBU800 MG PO; +ROBAXIN-500MG ORAL
--- NOTE | 2018-11-29 19:55 | NUR ---
ED Nurse Note: Pt ambulated to ED from home c/o SOb since yesterday. Pt has hx of asthma, did not use his rescue inhaler but did use his nebulizer without relief.
[2018-11-29 19:56] VITALS: BP 153/107
--- NOTE | 2018-11-29 20:12 | Emergency Room Report ---
History of Present Illness General Chief Complaint: Asthma Source: Patient Present Illness HPI Disclaimer: Please note that this report is being documented using [employer] technology. This can lead to erroneous entry secondary to incorrect interpretation by the dictating instrument. HPI: 28-year-old male with a history of asthma and hypertension presents for the evaluation of shortness of breath and cough. Symptoms began yesterday. He notes fatigue, sore throat, nasal congestion, dull headache, chest tightness and wheezing. He has been using his albuterol inhaler and nebulizer at home without significant improvement. Denies fevers but does report some chills, nausea and decreased appetite. He was hospitalized for 10 days with pneumonia last month and states is similar sensation with an aching in his lungs. He denies vomiting or diarrhea. No known sick contacts. PMH: Hypertension, asthma PSH: Denies Allergies: Denies Social Hx: [] Allergies: Coded Allergies: No Known Allergies (Unverified , 11/15/17) Nursing Documentation-PMH Hx Hypertension: Yes Hx Asthma: Yes Hx COPD: No - bronchitis Review of Systems All Other Systems: negative except mentioned in HPI Physical Exam Vital Signs Date Time Temp Pulse Resp B/P (MAP) Pulse Ox O2 Delivery O2 Flow Rate FiO2 11/29/18 19:46 98.2 80 18 153/107 (122) 99 Room Air General: Awake and alert, no acute distress HEENT: NC/AT. EOMI. Cardiovascular: RRR. S1 and S2 normal. No murmur appreciated Resp: Normal work of breathing. No cough, wheezing or crackles appreciated Abdomen: Abdomen is soft, nondistended. Nontender Skin: Intact. No abrasions, laceration or rash over the exposed skin MSK: Normal tone and bulk. Moving all extremities. No obvious deformity. Neuro: Awake and alert. Mentating appropriately. Medical Decision Making Diagnostic Impression: Primary Impression: Viral syndrome ER Course 28-year-old male with a history of asthma presents for evaluation of chest congestion, fatigue, shortness of breath, nasal congestion and cough. Differential includes was not limited to viral syndrome, pneumonia, bronchitis, asthma exacerbation. He is saturating 99% on room air, heart rate is within normal limits. He is overall well-appearing though fatigue. Likely describes as a viral syndrome. Will check x-ray to rule out pneumonia given his recent history and metabolic labs given his lack of appetite and decreased intake. We will give breathing treatment though he has no wheezing on exam Laboratory Tests Test 11/29/18 20:15 White Blood Count 7.5 K/UL (4.8-10.8) Red Blood Count 5.73 M/UL (4.70-6.10) Hemoglobin 17.0 G/DL (14.2-18.0) Hematocrit 51.6 % (42.0-52.0) Mean Corpuscular Volume 90 FL (80-99) Mean Corpuscular Hemoglobin 29.6 PG (27.0-31.0) Mean Corpuscular Hemoglobin Concent 32.9 G/DL (32.0-36.0) Red Cell Distribution Width 12.4 % (11.6-14.8) Platelet Count 141 K/UL (150-450) L Mean Platelet Volume 10.2 FL (6.5-10.1) H Neutrophils (%) (Auto) 65.8 % (45.0-75.0) Lymphocytes (%) (Auto) 25.3 % (20.0-45.0) Monocytes (%) (Auto) 7.1 % (1.0-10.0) Eosinophils (%) (Auto) 1.1 % (0.0-3.0) Basophils (%) (Auto) 0.7 % (0.0-2.0) Sodium Level 139 MMOL/L (136-145) Potassium Level 3.4 MMOL/L (3.5-5.1) L Chloride Level 102 MMOL/L (98-107) Carbon Dioxide Level 29 MMOL/L (21-32) Anion Gap 8 mmol/L (5-15) Blood Urea Nitrogen 14 mg/dL (7-18) Creatinine 1.2 MG/DL (0.55-1.30) Estimate Glomerular Filtration Rate > 60 mL/min (>60) Glucose Level 94 MG/DL (74-106) Calcium Level 9.5 MG/DL (8.5-10.1) Total Bilirubin 0.5 MG/DL (0.2-1.0) Aspartate Amino Transferase (AST) 34 U/L (15-37) Alanine Aminotransferase (ALT) 44 U/L (12-78) Alkaline Phosphatase 58 U/L (46-116) Total Protein 8.0 G/DL (6.4-8.2) Albumin 4.2 G/DL (3.4-5.0) Globulin 3.8 g/dL Albumin/Globulin Ratio 1.1 (1.0-2.7) Chest X-Ray Diagnostic Results Chest X-Ray Diagnostic Results : # of Views/Limited/Complete: 1 View Indication: Shortness of Breath EP Interpretation: Yes Interpretation: no consolidation, no effusion, no pneumothorax, no acute cardiopulmonary disease, other - Bilateral perihilar congestion Impression: Other - Bilateral perihilar congestion consistent with a viral syndrome Electronically Signed by: Electronically signed by Dr. David Julio Reevaluation Time: 21:26 Last Vital Signs Date Time Temp Pulse Resp B/P (MAP) Pulse Ox O2 Delivery O2 Flow Rate FiO2 11/29/18 19:56 80 18 Room Air 11/29/18 19:56 98.2 153/107 99 Reevaluation Impression X-rays show no evidence of infiltrate. Labs have returned within normal limits. Patient is receiving IV fluids. Chest exam remains unchanged and he has no wheezing. We will do a short course of prednisone given his asthma history. He will follow-up with his PMD and we discussed reasons to return to the emergency department. He understands and agrees with this treatment plan will be discharged home. Disposition: HOME, SELF-CARE Condition: Stable Scripts Prednisone* (PREDNISONE*) 20 Mg Tablet 40 MG ORAL DAILY, #8 TAB Prov: David Julio MD 11/29/18 David Julio MD Nov 29, 2018 20:12
[2018-11-29] MEDS ORDERED: Ipratropium 0.02% Inh Soln 2.5ml UD HHN ONE (20:15)
[2018-11-29] MEDS: Albuterol ud Inhalation HHN SCH ×3 (20:20→20:38)
[2018-11-29 20:31] LABS: BASOPHILS % (AUTO) 0.7 % (0.0-2.0); EOSINOPHILS % (AUTO) 1.1 % (0.0-3.0); HEMATOCRIT 51.6 % (42.0-52.0); LYMPHOCYTES % (AUTO) 25.3 % (20.0-45.0); MEAN CORPUSCULAR VOLUME 90 FL (80-99); MONOCYTES % (AUTO) 7.1 % (1.0-10.0); NEUTROPHILS % (AUTO) 65.8 % (45.0-75.0); PLATELET COUNT 141 K/UL (150-450); RED BLOOD COUNT 5.73 M/UL (4.70-6.10); RED CELL DISTRIBUTION WIDTH 12.4 % (11.6-14.8); WHITE BLOOD COUNT 7.5 K/UL (4.8-10.8)
[2018-11-29 20:45] LABS: ANION GAP 8 mmol/L (5-15); BLOOD UREA NITROGEN 14 mg/dL (7-18); CALCIUM 9.5 MG/DL (8.5-10.1); CARBON DIOXIDE 29 MMOL/L (21-32); CHLORIDE 102 MMOL/L (98-107); CREATININE 1.2 MG/DL (0.55-1.30); POTASSIUM 3.4 MMOL/L (3.5-5.1); SODIUM 139 MMOL/L (136-145)
[2018-11-29 20:50] LABS: ALANINE AMINOTRANSFERASE 44 U/L (12-78); ALBUMIN 4.2 G/DL (3.4-5.0); ALBUMIN/GLOBULIN RATIO 1.1 (1.0-2.7); ALKALINE PHOSPHATASE 58 U/L (46-116); ASPARTATE AMINO TRANSFERASE 34 U/L (15-37); BILIRUBIN,TOTAL 0.5 MG/DL (0.2-1.0)
[2018-11-29] MEDS ORDERED: PREDNISONE20 MG ORAL (21:33)
[2018-11-29 22:05] VITALS: BP 153/107
--- NOTE | 2018-11-29 22:05 | NUR ---
ER DISCHARGE NOTE: Patient is cleared to be discharged per ERMD, pt is aox4, on room air, with stable vital signs. pt was given dc and prescription instructions, pt was able to verbalize understanding, pt id band and iv site removed without complications. pt is able to ambulate with steady gait. pt took all belongings.
--- NOTE | 2018-11-30 12:36 | Diagnostic Imaging Report ---
Indication: Cough Comparison: 11/13/2017 A single view chest radiograph was obtained. Findings: Cardiomediastinal appearance is within normal limits for age. The lungs are clear. Pulmonary vascularity is appropriate. The diaphragmatic contour is smooth and costophrenic angles are sharp. No pleural effusions are identified. The bones are unremarkable. Impression: No acute findings
== END 2018-11-29 22:05 | disposition home or self-care (01) ==
LOC: EMR 20:23
DX: B34.9 Viral infection, unspecified (principal); I10 Essential (primary) hypertension; J45.909 Unspecified asthma, uncomplicated; R05 Cough
CPT/HCPCS: 36415; 71045; 80053; 85025; 94640; 94664; 96360; 99284

== ENCOUNTER 2019-04-06 14:53 | Emergency (ER) | payer OTHER ==
[~2019-04-06] VITALS: Ht 175.3 cm; Wt 104.3 kg
[~2019-04-06 14:53] MED LIST changes: +DOXYCYCLINE MO100 MG ORAL
[2019-04-06 14:59] VITALS: BP 142/93
[2019-04-06] MEDS ORDERED: LORazepam Inj 2mg/ml 1ml IV ONE (15:15)
--- NOTE | 2019-04-06 15:15 | Emergency Room Report ---
History of Present Illness General Chief Complaint: Asthma Source: Patient Present Illness HPI 28 YO male presents to the ED c/o SOB, and feeling dizzy light headed. Pt. reports decreased appetite was first symptom, and is common when he gets sick. He states he had a hard time breathing and was wheezing. He feels like he can't get a deep breath in. He reports being evaluated by his PCP who placed him on amoxicillin and told him to get OTC cold medications. Pt. with hx of asthma. He reports intermittent cough with nasal congestion. He denies fevers or chills. He denies pain, ST, neck pain/stiffness, abdominal pain/tenderness. he denies N/ V. He denies swelling of the lips or tongue. Denies CONKLIN, neck pain or stiffness. He denies CP or palpitations. Denies drug use. Allergies: Coded Allergies: No Known Allergies (Unverified , 02/19/19) Patient History Past Medical History: see triage record Past Surgical History: none Pertinent Family History: none Reviewed Nursing Documentation: PMH: Agreed; PSxH: Agreed Nursing Documentation-PMH Hx Hypertension: Yes Hx Asthma: Yes Hx COPD: No - bronchitis Review of Systems All Other Systems: negative except mentioned in HPI Physical Exam Vital Signs Date Time Temp Pulse Resp B/P (MAP) Pulse Ox O2 Delivery O2 Flow Rate FiO2 04/06/19 14:59 97.9 84 19 142/93 (109) 100 Room Air Sp02 EP Interpretation: reviewed, normal General Appearance: no apparent distress, alert, GCS 15, non-toxic Head: normocephalic, atraumatic Eyes: bilateral eye normal inspection, bilateral eye PERRL ENT: hearing grossly normal, normal voice, nasal congestion - mild nasal congestion Neck: full range of motion Respiratory: chest non-tender, lungs clear, normal breath sounds - mild tightness in the lower lobes, no respiratory distress, no accessory muscle use, speaking full sentences Cardiovascular #1: regular rate, rhythm, no edema, normal capillary refill Musculoskeletal: normal range of motion, gait/station normal, non-tender Neurologic: alert, motor strength/tone normal, oriented x3, sensory intact, responsive, speech normal Psychiatric: judgement/insight normal, anxious Skin: normal color, normal inspection Medical Decision Making PA Attestation Dr. Rae Is my supervising Physician whom patient management has been discussed with. Diagnostic Impression: Primary Impression: Asthma exacerbation Qualified Codes: J45.901 - Unspecified asthma with (acute) exacerbation ER Course 28 YO male presents to the ED c/o SOB, and feeling dizzy light headed. Pt. reports decreased appetite was first symptom, and is common when he gets sick. He states he had a hard time breathing and was wheezing. He feels like he can't get a deep breath in. He reports being evaluated by his PCP who placed him on amoxicillin and told him to get OTC cold medications. Pt. with hx of asthma. He reports intermittent cough with nasal congestion. He denies fevers or chills. He denies pain, ST, neck pain/stiffness, abdominal pain/tenderness. he denies N/ V. He denies swelling of the lips or tongue. Denies CONKLIN, neck pain or stiffness. He denies CP or palpitations. Denies drug use. Ddx considered but are not limited to anxiety, PNA, [place], PE, asthma, thyroid storm, hyperthyroid, EPS Vital signs: are WNL, pt. is afebrile H&PE are most consistent with asthma exacerbation with increased anxiousness. Pt. has PERC score of Zero. PT. demonstrates/verbalizes generalized anxiety about his health. suspect underlying psychological component as well. Pt. is moving air well, no audible wheezes. Non-toxic in appearance. ORDERS: -EK NSR -CXR: WNL ED INTERVENTIONS: -1 Liter NS IV - 1mg Ativan IV - Albuterol HHN -60mg Prednisone PO -500cc NS - DISCHARGE: At this time pt. is stable for d/c to home. Will provide printed patient care instructions, and any necessary prescriptions. Care plan and follow up instructions have been discussed with the patient prior to discharge. EKG Diagnostic Results Rate: normal - 82 Rhythm: NSR ST Segments: no acute changes ASA given to the pt in ED: No PA Scribe Text This Interpretation was scribed by CESAR Beck. Chest X-Ray Diagnostic Results Chest X-Ray Diagnostic Results : Chest X-Ray Ordered: Yes # of Views/Limited/Complete: 1 View Indication: Shortness of Breath EP Interpretation: Yes PA Xray: Interpretation reviewed, by supervising MD, and agrees with findings. Interpretation: no consolidation, no effusion, no pneumothorax, no acute cardiopulmonary disease Impression: No acute disease Electronically Signed by: Rimma Beck PA-C Last Vital Signs Date Time Temp Pulse Resp B/P (MAP) Pulse Ox O2 Delivery O2 Flow Rate FiO2 04/06/19 14:59 97.9 84 19 142/93 (109) 100 Room Air Status: improved Disposition: HOME, SELF-CARE Condition: Stable Scripts Albuterol Sulfate* (ALBUTEROL SULFATE HHN*) 2.5 Mg/3 Ml Vial.neb 3 ML INH Q6H PRN for Shortness of Breath, #30 EA 0 Refills Prov: Rimma Beck 04/06/19 Prednisone* (PREDNISONE*) 20 Mg Tablet 40 MG ORAL DAILY for 5 Days, #10 TAB Prov: Rimma Beck 04/06/19 Patient Instructions: Asthma, Adult Additional Instructions: Take medications as directed. Follow up with a Primary Care Provider in 3 days, even if your symptoms have resolved. Return sooner to ED if new symptoms occur, or current symptoms become worse. - Please note that this Emergency Department Report was dictated using [employer]teenage babysitter technology software, occasionally this can lead to erroneous entry secondary to interpretation by the dictation equipment. Rimma Beck Apr 06, 2019 15:15
--- NOTE | 2019-04-06 15:17 | NUR ---
ED Nurse Note: pt. walked in to er from home. per pt, he has been having asthma attack x 2 days now. no breathing tx. 100% RA
[2019-04-06] MEDS ORDERED: Albuterol ud Inhalation HHN ONE (16:15)
[2019-04-06] MEDS ORDERED: Ketorolac 30mg Inj IV ONE (16:15)
--- NOTE | 2019-04-06 16:17 | NUR ---
ED Nurse Note: xray at the bedside
--- NOTE | 2019-04-06 16:43 | NUR ---
Note mayte in EDM - 04/06/19 at 1652 by JUDY ED Nurse Note: Brought in by parents due to head injury; s/p fall yesterday at school; Swelling on the forehead with bruise noted. Reports no N/V or changes in his behavior, but dad noticed him having "wobbling gait"
--- NOTE | 2019-04-06 16:43 | NUR ---
ED Nurse Note: rt at the bedside
--- NOTE | 2019-04-06 17:07 | Diagnostic Imaging Report ---
Indication: Chest pain Technique: One view of the chest Comparison: 11/29/2018 Findings: Lungs and pleural spaces are clear. Heart size is normal. No significant interim change Impression: No acute process
[2019-04-06] MEDS ORDERED: ALBUTEROL2.5 MG/3 M INH (17:31)
[2019-04-06] MEDS ORDERED: PREDNISONE20 MG ORAL (17:31)
--- NOTE | 2019-04-06 17:32 | NUR ---
ED Nurse Note: unable to scan the 500 NS bag. manually scanned it
[2019-04-06 18:13] VITALS: BP 138/75
== END 2019-04-06 18:13 | disposition home or self-care (01) ==
LOC: EMR 17:44
DX: J45.901 Unspecified asthma with (acute) exacerbation (principal); I10 Essential (primary) hypertension
CPT/HCPCS: 71045; 93005; 96361; 96374; 96375; 99284; J1885; J7030; J7040; J7512